=== PATIENT | female | born 1930 | race Caucasian/White ===

== ENCOUNTER 2016-10-16 08:50 | Emergency (ER) | payer MEDICARE, BC ==
[2016-10-16] MEDS ORDERED: Alum Hydrox/Mag Hydrox/Simeth 30 ML, Lidocaine 2% 15 ML PO STA ×2 (09:11)
--- NOTE | 2016-10-16 10:27 | EDM.PDOC ---
ED HPI GENERAL MEDICAL PROBLEM - General Chief Complaint: Chest Pain Stated Complaint: CHEST PAIN Time Seen by Provider: 10/16/16 09:00 Source of Information: Reports: Patient, RN notes reviewed History Limitations: Reports: No limitations - History of Present Illness INITIAL COMMENTS - FREE TEXT/NARRATIVE: The patient states that she was woken with anterior chest pain around 05:00 this morning. It is burning in character. It does not radiate. The patient states that it feels somewhat better if she is in an upright position, worse if she is supine. No associated symptoms, such as nausea, diaphoresis, dyspnea, or sense of impending doom. No prior similar symptoms. The patient states that she did not try any home remedies to treat this. Bilateral Chest Pain Score (Numeric/FACES): 5 - Related Data Allergies Allergy/AdvReac Type Severity Reaction Status Date / Time Unable to Assess Allergy Verified 10/16/16 08:57 Past Medical History HEENT History: Reports: Cataract Cardiovascular History: Reports: High cholesterol, Hypertension Gastrointestinal History: Reports: GERD Genitourinary History: Reports: Urinary incontinence Endocrine/Metabolic History: Reports: Hypothyroidism - Past Surgical History HEENT Surgical History: Reports: Cataract surgery Female Surgical History: Reports: Other (see below) (Bladder suspension) Social & Family History - Family History Family Medical History: Noncontributory - Tobacco Use Smoking Status *Q: Former Smoker Tobacco Use Within Last Twelve Months: No Years of Tobacco use: 39 Packs/Tins Daily: 0.5 Used Tobacco, but Quit: Yes Month Tobacco Last Used: 1991 Second Hand Smoke Exposure: No - Caffeine Use Caffeine Use: Reports: Coffee - Alcohol Use Alcohol Use History: Yes Alcohol Use Frequency: Socially - Recreational Drug Use Recreational Drug Use: No - Living Situation & Occupation Living situation: Reports: , alone 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) ED ROS GENERAL - Review of Systems Review Of Systems: See Below Constitutional: Reports: no symptoms HEENT: Reports: Other (URI symptoms last week) Respiratory: Reports: No Symptoms Cardiovascular: Reports: No symptoms Endocrine: Reports: no symptoms GI/Abdominal: Reports: No symptoms : Reports: no symptoms Musculoskeletal: Reports: no symptoms Skin: Reports: no symptoms Neurological: Reports: No Symptoms Psychiatric: Reports: No symptoms Hematologic/Lymphatic: Reports: no symptoms Immunologic: Reports: no symptoms ED EXAM, GENERAL - Physical Exam Exam: See Below Exam Limited By: No limitations General Appearance: alert, WD/WN, no apparent distress Eye Exam: bilateral eye: EOMI, normal inspection Ears: normal external exam, hearing grossly normal Ear Exam: bilateral ear: auricle normal Nose: normal inspection, no blood Throat/Mouth: Normal inspection, Normal lips, Normal voice, No airway compromise Head: atraumatic, normocephalic Neck: normal inspection, full range of motion Respiratory/Chest: no respiratory distress, lungs clear, normal breath sounds, no accessory muscle use, chest non-tender Cardiovascular: normal peripheral pulses, regular rate, rhythm, no edema, no gallop, no JVD, no murmur, no rub Peripheral Pulses: 4+: radial (L), radial (R) GI/Abdominal: normal bowel sounds, soft, no organomegaly, no distention, no abnormal bruit, no mass, tender (Epigastric region only. Nontender elsewhere, including the right upper quadrant.) Back Exam: normal inspection, full range of motion. No: CVA tenderness (L), CVA tenderness (R) Extremities: normal inspection, normal range of motion, no pedal edema, normal capillary refill Neurological: alert, oriented, normal cognition, no motor/sensory deficits Psychiatric: normal affect Skin Exam: Warm, Dry, Intact, Normal color, No rash Lymphatic: no adenopathy EKG INTERPRETATION EKG Date: 10/16/16 Time: 09:00 Rhythm: NSR Rate (beats/min): 73 Crane: normal P-wave: present QRS: normal ST-T: normal QT: normal Comparison: no change (01/10/2014) Course - Vital Signs Last Recorded V/S: Last Vital Signs Temp 36.2 C 10/16/16 08:57 Pulse 76 10/16/16 10:56 Resp 12 10/16/16 10:56 BP 120/76 10/16/16 10:56 Pulse Ox 100 10/16/16 10:56 - Orders/Labs/Meds Labs: Laboratory Tests 10/16/16 10/16/16 10/16/16 Range/Units 09:15 09:15 09:15 WBC 9.53 (3.98-10.04) K/mm3 RBC 4.62 (3.98-5.22) M/mm3 Hgb 13.7 (11.2-15.7) gm/L Hct 39.9 (34.1-44.9) % MCV 86.4 (79.4-94.8) fl MCH 29.7 (25.6-32.2) pg MCHC 34.3 (32.2-35.5) g/dl RDW Std Deviation 41.5 (36.4-46.3) fL Plt Count 181 L (182-369) K/mm3 MPV 13.1 H (9.4-12.3) fl Neutrophils % (Manual) 77 H (40-60) % Band Neutrophils % 0 (0-10) % Lymphocytes % (Manual) 19 L (20-40) % Atypical Lymphs % 0 % Monocytes % (Manual) 1 L (2-10) % Eosinophils % (Manual) 3 (0.7-5.8) % Basophils % (Manual) 0 L (0.1-1.2) Platelet Estimate Adequate RBC Morph Comment Normal PT 9.8 (8.0-13.0) SECONDS INR 0.90 APTT 22 (22-36) SECONDS Sodium 138 (136-145) mEq/L Potassium 3.5 (3.5-5.1) mEq/L Chloride 101 (98-107) mEq/L Carbon Dioxide 25 (21-32) mEq/L Anion Gap 15.5 H (5-15) BUN 26 H (7-18) mg/dL Creatinine 1.5 H (0.55-1.02) mg/dL Est Cr Clr Drug Dosing 27.63 mL/min Estimated GFR (MDRD) 33 (>60) mL/min BUN/Creatinine Ratio 17.3 (14-18) Glucose 134 H (83-115) mg/dL Calcium 9.7 (8.5-10.1) mg/dL Total Bilirubin 0.4 (0.2-1.0) mg/dL AST 16 (15-37) U/L ALT 24 (14-59) U/L Alkaline Phosphatase 69 (46-116) U/L Troponin I < 0.017 (0.00-0.056) ng/mL Total Protein 7.8 (6.4-8.2) g/dl Albumin 4.3 (3.4-5.0) g/dl Globulin 3.5 gm/dL Albumin/Globulin Ratio 1.2 (1-2) Lipase 293 (73-393) U/L Meds: Medications Discontinued Medications Generic Name Dose Route Start Last Admin Trade Name Saqib PRN Reason Stop Dose Admin Al Hydroxide/Mg Hydroxide 30 0 ml 10/16/16 09:11 10/16/16 09:19 ml/ Lidocaine HCl 15 ml PO 10/16/16 09:12 45 ml ONETIME STA Administration Famotidine 40 mg 10/16/16 10:40 10/16/16 10:51 Pepcid PO 10/16/16 10:41 40 mg ONETIME STA Administration - Radiology Interpretation Free Text/Narrative:: Two-view chest radiograph does not appear to demonstrate any acute abnormalities. Cardiac silhouette is within normal limits. No pulmonary vascular congestion. No pleural effusions. No focal infiltrate. No pneumothorax. There is bilateral hyperinflation and bilateral diaphragmatic flattening, consistent with COPD. Formal read per the Radiologist pending. - Re-Assessments/Exams Free Text/Narrative Re-Assessment/Exam: 10/16/16 10:39 Test results discussed with the patient. The patient reports significant improvement in her epigastric pain following the GI cocktail. The rest of her workup, including an ECG obtained with pain, is unremarkable. Her pain is almost certainly due to GERD. I'm going to start the patient on oral Pepcid today, and recommended she take one tablet every morning, going forward. If that is ineffective, the patient should have an EGD. Departure - Departure Time of Disposition: 10:43 Disposition: Home, Self-Care 01 Condition: good Clinical Impression: GERD (gastroesophageal reflux disease) Instructions: Gastroesophageal Reflux Disease, Adult Referrals: Rodger Molina MD [Primary Care Provider] - Forms: ED Department Discharge Additional Instructions: You were seen in the emergency room today for chest pain and tenderness in your upper central abdomen. Workup in the ER included blood work, an ECG, and a chest x-ray. You were also given a GI cocktail to drink. Your workup was entirely normal. There is no evidence that your chest pain is from your heart. Additionally, you received significant improvement after drinking the GI cocktail. Your pain is ALMOST CERTAINLY due to acid reflux. You have been started on the antacid medicine Pepcid (famotidine). This is available [id number], and generics are just as good as the brand name. We recommend you take one tablet each morning, starting tomorrow, 10/17/2016. If that does not help with your symptoms, please followup with Dr. Molina to arrange for an EGD (scope of your stomach). We recommend that you notify the office of Dr. Molina on Tuesday morning of today' s visit. If any other problems, please do not hesitate to return to the ER.
[2016-10-16] MEDS ORDERED: Famotidine 20 MG Tab PO STA (10:40)
[2016-10-16 10:58] VITALS: BP 120/76
--- NOTE | 2016-10-17 09:26 | CR ---
Chest: Two views of the chest were obtained. Comparison: Previous chest x-ray of 06/28/09. Heart size is normal. Tortuous thoracic aorta is seen. Lungs are clear but somewhat hyperinflated. Bony structures are osteopenic. Degenerative spurring noted within the spine. Impression: 1. Emphysematous change. Nothing acute is identified on two-view chest x-ray. Diagnostic code #2
== END 2016-10-16 11:05 | disposition home or self-care (01) ==
LOC: JD.ED 08:50
DX: K21.9 Gastro-esophageal reflux disease without esophagitis (principal); E78.00 Pure hypercholesterolemia, unspecified; I10 Essential (primary) hypertension; E03.9 Hypothyroidism, unspecified; Z87.891 Personal history of nicotine dependence
CPT/HCPCS: 36415; 71020; 80053; 83690; 84484; 85025; 85610; 85730; 93005; 99285; A9270; 99283

== ENCOUNTER 2017-04-23 16:32 | Emergency (ER) | payer MEDICARE, OTHER ==
[2017-04-23 17:06] VITALS: BP 140/62
--- NOTE | 2017-04-23 17:20 | EDM.PDOC ---
ED HPI GENERAL MEDICAL PROBLEM - General Chief Complaint: Abdominal Pain Stated Complaint: DIZZY STOMACH PAIN Time Seen by Provider: 04/23/17 17:20 Source of Information: Reports: Patient History Limitations: Reports: No Limitations - History of Present Illness INITIAL COMMENTS - FREE TEXT/NARRATIVE: 86-year-old female presents to the ED with complaints of gradually worsening abdominal pain over the last 2-3 days. She complains of pressure sensation under both left and right costal margins across her upper abdomen in pain in the left lower quadrant of the abdomen. Associated chills but no definitive fever. Appetite remains good. She also complains of diffuse low back pain. Does not hurt to cough and laugh or sneeze. She reports that she had a bout of diarrhea and was identified to have a urinary tract infection and was treated with antibiotics of which she finished last Tuesday or 6 days ago. Interestingly her diarrhea cleared up as did the symptoms of the urinary tract infection with the antibiotics. She used them for 7 days and she's not sure what it was. She has never had diverticulitis before. There are no signs or symptoms of renal colic. Onset: Gradual Onset Date: 04/21/17 Duration: Day(s): (gradually getting worse over the last 2 and half days), Getting Worse Location: Reports: Abdomen (upper abdomen as well as left lower quadrant of the abdomen.), Back (diffuse low back pain) Quality: Reports: Ache, Other (occasionally colicky cramping type pain) Severity: Moderate Improves with: Reports: None Worsens with: Reports: None Context: Denies: Activity, Exercise, Lifting, Sick Contact, Trauma, Other Associated Symptoms: Reports: Fever/Chills, Malaise. 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 No recent changes to any of her medications.) Lower Abdomen Pain Score (Numeric/FACES): 6 - Related Data Allergies Allergy/AdvReac Type Severity Reaction Status Date / Time No Known Allergies Allergy Verified 04/23/17 17:02 Home Meds: Home Meds Meloxicam 7.5 mg PO DAILY #30 tablet 10/07/17 [Rx] Potassium Chloride 20 meq PO DAILY #30 tablet.er 04/23/17 [Rx] Past Medical History HEENT History: Reports: Cataract Cardiovascular History: Reports: High Cholesterol, Hypertension Gastrointestinal History: Reports: GERD Genitourinary History: Reports: Urinary Incontinence Endocrine/Metabolic History: Reports: Hypothyroidism - Past Surgical History HEENT Surgical History: Reports: Cataract Surgery Female Surgical History: Reports: Other (See Below) Social & Family History - Family History Family Medical History: Noncontributory - Tobacco Use Smoking Status *Q: Former Smoker Years of Tobacco use: 39 Packs/Tins Daily: 0.5 Used Tobacco, but Quit: No Month Tobacco Last Used: 1991 Second Hand Smoke Exposure: No - Caffeine Use Caffeine Use: Reports: Coffee - Alcohol Use Days Per Week of Alcohol Use: 0 - Recreational Drug Use Recreational Drug Use: No - Living Situation & Occupation Living situation: Reports: , Alone Occupation: Employed ED ROS GENERAL - Review of Systems Review Of Systems: See Below Constitutional: Reports: Chills, Malaise. Denies: Fever, Decreased Appetite, Weight Loss HEENT: Reports: Vertigo. Denies: No Symptoms Respiratory: Reports: No Symptoms Cardiovascular: Reports: No Symptoms Endocrine: Reports: No Symptoms GI/Abdominal: Reports: Abdominal Pain. Denies: Constipation, Diarrhea (see history of present illness), Distension, Flatus, Hematemesis, Melena, Stool Incontinence : Reports: Frequency, Incontinence (occasional urge incontinence. Has had previous A&P repair.) Musculoskeletal: Reports: Back Pain (diffuse low back pain.) Skin: Reports: No Symptoms Neurological: Reports: No Symptoms Psychiatric: Reports: No Symptoms Hematologic/Lymphatic: Reports: No Symptoms Immunologic: Reports: No Symptoms ED EXAM, GI/ABD - Physical Exam Exam: See Below Exam Limited By: No Limitations General Appearance: Alert, WD/WN, No Apparent Distress Eyes: Bilateral: Normal Appearance Throat/Mouth: Normal Inspection, Normal Lips, Normal Oropharynx, Other Head: Atraumatic, Normocephalic (tongue is mildly dry and coated) Neck: Normal Inspection, Supple, Non-Tender, Full Range of Motion. No: Lymphadenopathy (L), Lymphadenopathy (R) Respiratory/Chest: No Respiratory Distress, Lungs Clear, Normal Breath Sounds, No Accessory Muscle Use, Chest Non-Tender Cardiovascular: Normal Peripheral Pulses, Regular Rate, Rhythm, No Edema, No Gallop, No JVD, No Murmur GI/Abdominal Exam: Soft, Non-Tender, Distended (slightly distended and tympanitic to percussion throughout all 4 quadrants.), Tender (tenderness localized to left lower quadrant sigmoid colon area on deep palpation), Abnormal Bowel Sounds (diffuse hyperactive bowel sounds.). No: Guarding ( no guarding or rebound.), Rigid, Rebound Back Exam: Vertebral Tenderness Extremities: Normal Inspection (she is tender throughout her lower back L3 L4 L5 facet joints bilaterally with no overlying paraspinal muscle spasm.), Normal Range of Motion, Non-Tender, No Pedal Edema Neurological: Alert, Oriented, CN II-XII Intact, Normal Cognition Psychiatric: Normal Affect, Normal Mood Skin Exam: Warm, Dry, Intact, Normal Color, No Rash Course - Vital Signs Last Recorded V/S: Last Vital Signs Temp 36.2 C 04/23/17 17:02 Pulse 71 04/23/17 17:02 Resp 18 04/23/17 17:02 BP 140/62 04/23/17 17:02 Pulse Ox 94 L 04/23/17 17:02 - Orders/Labs/Meds Orders: Active Orders 24 hr Category Date Time Status Peripheral IV Care [RC] . DIRECTED Care 04/23/17 17:29 Active Abdomen 1V Flat [CR] Stat Exams 04/23/17 17:28 Taken Abdomen Pelvis wo Cont [CT] Stat Exams 04/23/17 18:29 Taken CULTURE BLOOD [BC] Stat Lab 04/23/17 17:50 Received CULTURE BLOOD [BC] Stat Lab 04/23/17 18:04 Received URINALYSIS W/MICROSCOPIC [UA W/MICROSCOPIC] [URIN] Stat Lab 04/23/17 17:28 Uncollected Sodium Chloride 0.9% [Saline Flush] Med 04/23/17 17:29 Active 10 ml FLUSH ASDIRECTED PRN Blood Culture x2 Reflex Set [OM.PC] Stat Oth 04/23/17 17:29 Ordered Peripheral IV Insertion Adult [OM.PC] Stat Oth 04/23/17 17:29 Ordered Medication Orders Sodium Chloride (Saline Flush) 10 ml FLUSH ASDIRECTED PRN PRN Reason: Keep Vein Open Last Admin: 04/23/17 19:04 Dose: 10 ml Labs: Laboratory Tests 10/07/17 10/07/17 10/07/17 Range/Units 18:04 18:04 18:04 WBC 8.91 (3.98-10.04) K/mm3 RBC 4.37 (3.98-5.22) M/mm3 Hgb 13.0 (11.2-15.7) gm/L Hct 37.7 (34.1-44.9) % MCV 86.3 (79.4-94.8) fl MCH 29.7 (25.6-32.2) pg MCHC 34.5 (32.2-35.5) g/dl RDW Std Deviation 44.3 (36.4-46.3) fL Plt Count 190 (182-369) K/mm3 MPV 13.0 H (9.4-12.3) fl Neutrophils % (Manual) 69 H (40-60) % Band Neutrophils % 1 (0-10) % Lymphocytes % (Manual) 21 (20-40) % Atypical Lymphs % 0 % Monocytes % (Manual) 7 (2-10) % Eosinophils % (Manual) 1 (0.7-5.8) % Basophils % (Manual) 1 (0.1-1.2) Platelet Estimate Adequate RBC Morph Comment Normal Sodium 141 (136-145) mEq/L Potassium 3.3 L (3.5-5.1) mEq/L Chloride 104 (98-107) mEq/L Carbon Dioxide 23 (21-32) mEq/L Anion Gap 17.3 H (5-15) BUN 20 H (7-18) mg/dL Creatinine 1.5 H (0.55-1.02) mg/dL Est Cr Clr Drug Dosing 26.14 mL/min Estimated GFR (MDRD) 33 (>60) mL/min BUN/Creatinine Ratio 13.3 L (14-18) Glucose 119 H (83-115) mg/dL Calcium 9.4 (8.5-10.1) mg/dL Total Bilirubin 0.4 (0.2-1.0) mg/dL AST 20 (15-37) U/L ALT 25 (14-59) U/L Alkaline Phosphatase 45 L (46-116) U/L C-Reactive Protein < 0.2 (<1.0) mg/dL Total Protein 7.0 (6.4-8.2) g/dl Albumin 3.6 (3.4-5.0) g/dl Globulin 3.4 gm/dL Albumin/Globulin Ratio 1.1 (1-2) Lipase 228 (73-393) U/L Meds: Medications Generic Name Dose Route Start Last Admin Trade Name Saqib PRN Reason Stop Dose Admin Sodium Chloride 10 ml 04/23/17 17:29 04/23/17 19:04 Saline Flush FLUSH 10 ml ASDIRECTED PRN Administration Keep Vein Open Discontinued Medications Generic Name Dose Route Start Last Admin Trade Name Freq PRN Reason Stop Dose Admin Diatrizoate Meglum/Diatrizoate Sod 90 ml 04/23/17 19:16 04/23/17 19:46 Gastrografin 37% PO 04/23/17 19:17 90 ml ONETIME ONE Administration Dicyclomine HCl 20 mg 04/23/17 21:00 04/23/17 21:05 Bentyl PO 04/23/17 21:01 20 mg ONETIME ONE Administration Potassium Chloride 20 meq 04/23/17 20:57 04/23/17 21:05 Klor-Con M20 PO 04/23/17 20:58 20 meq ONETIME ONE Administration - Radiology Interpretation Free Text/Narrative:: 86-year-old female presents to the ED with complaint of gradually worsening abdominal pain over the last 2-3 days. Associated chills but no definitive fever. She is afebrile at the time of presentation she states that she had diarrhea 10 days ago and was diagnosed with a urinary tract infection. She was treated with a course of 7 days of antibiotics which cleared up her diarrhea and her urinary tract infection. Last pill was taken last April 17. She was on a seven-day course of medication. She states subsequently her bowel function is returning to formed up stools without blood.examination reveals localized tenderness to the left lower quadrant suspicious for possible diverticulitis developing. She has very hyperactive bowel sounds throughout which may mean there is some constipation issues going on as well. Plan routine labs peripheral IV lock to be established she does not need any medication at this time. 1 - Re-Assessments/Exams Free Text/Narrative Re-Assessment/Exam: 04/23/17 18:32 KUB reveals air throughout the small and portions of the large bowel without any air-fluid levels to suggest an obstruction. I can see a letter fluid along the pelvic brim in the midline suggesting fluid within the lower pelvis. Therefore CT of the abdomen and pelvis will be performed to help clarify cause of her abdominal pain. 04/23/17 19:00labs reveal a normal white count at 8.91 with 69% neutrophils and 1% band cells. Hemoglobin is 13.0 hematocrit is 37.7. Platelets 190,000. Chemistry shows a sodium 07/18/40 potassium slightly low at 3.3 chloride 104 bicarbonate 23. And a gap is mildly elevated at 17.3. B1 is 20 creatinine is elevated 1.5 within EGFR 33 indicating stage III chronic kidney disease. Glucose is 119 lipase is normal at 222. CRP is less than 0.2. Urinalysis is not yet available.due to her low EGFR decision made not to pursue IV contrast with her CT abdomen and pelvis. It will be done with only oral contrast. 04/23/17 20:12CT of the abdomen and pelvis has been done with oral contrast only. It reveals a homogeneous looking liver and normal gallbladder. Pancreas appears normal spleen is normal both kidneys show peripelvic renal cysts without any degree of obstruction of the ureters. Adrenal glands appear unremarkable. There is diffuse diverticulosis of the 8 entire colon. But there is no evidence of acute diverticulitis. No bowel obstruction. No finding to suggest appendicitis. No significant fluid collections within the pelvis. 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 Aortic iliac vessels show diffuse atherosclerotic disease with no aortic aneurysm. No lymphadenopathy appreciated within the pelvis. Therefore her bowel problem. Sputum mostly that of scattered constipation. I'm going to place her on MiraLAX 17 g once daily to keep her bowels much more regular. She is mildly volume depleted at this time. She needs to drink more fluids. She has mild hypoproteinemia and her diet should include lots of juices.in regards to her back she may benefit from a low-dose anti-inflammatory such as meloxicam but I don't have her med list to be able to absorb reduce medications. We will try and obtain these through the [employer] system as she does see Dr. Molina as her primary care physician 04/23/17 20:38 through the [employer] system we were able to obtain her current med list. She is currently on omeprazole 20 mg once a day in the morning enteric -coated aspirin 81 mg daily levothyroxine 50 g once daily hydrochlorothiazide 12.5 mg once daily amlodipine 5 mg once daily Zocor 20 mg tablet once daily metoprolol 50 mg one half tablet twice daily multivitamin and appears the most recent antibiotic that she utilized was Cipro for urinary tract infection. 04/23/17 20:58I'm going to place her on meloxicam 15 mg once a day. I will also place her on Slow-K 20 mg once daily to improve her potassium function and perhaps her appetite. Her dizziness I believe is due to volume depletion and she is advised to drink plenty of fluids to include juices Gatorade Powerade etc. She has had 2 diarrhea stools in the department after having oral contrast for the CT of the abdomen and pelvis. This will provide cleanse of the bowel and I will not add MiraLAX powder once daily at this time but if she develops further prongs with her abdomen she may well need this daily. Departure - Departure Time of Disposition: 20:59 Disposition: Home, Self-Care 01 Condition: Fair Clinical Impression: Nausea, Hypokalemia, Volume depletion, Constipation by delayed colonic transit - Discharge Information Prescriptions: Meloxicam 7.5 mg PO DAILY #30 tablet Potassium Chloride 20 meq PO DAILY #30 tablet.er Referrals: Rodger Molina MD [Primary Care Provider] - Forms: ED Department Discharge Additional Instructions: evaluation the emergency room today in regards to development of diffuse abdominal pain particularly across the upper abdomen underneath the ribs and in the left lower quadrant. Associated lightheadedness dizziness and nausea. Lab work reveals a normal white count with no signs of an action. Potassium was found to be low from poor oral intake and loss of potassium due to use of water pill hydrochlorothiazide. Potassium supplement is therefore advised once daily and Casimiro Chan wrote a prescription for potassium supplement 20 mEq once daily for the next month. This may relieve the nausea and improve appetite. Lab work identified that you're low on fluids and you need to drink more juices and fluids to rehydrate. CT scan of the abdomen is completed to rule out diverticulitis and infection of the large bowel. You have numerous diverticula but there is no active infection or diverticulitis evident in the bowel. There was a lot of increased stool scattered throughout the upper: Across the upper abdomen and right hemicolon. The oral contrast you drink 4 CT exam will provide bowel cleanse. If problems with constipation develop after this may need to mixing picker tender some MiraLAX powder and take a half a scoop once daily. Suggest follow with in 7-10 days time for repeat lab tests.recheck on kidney function and potassium levels. - My Orders Last 24 Hours: My Active Orders 04/23/17 17:28 Abdomen 1V Flat [CR] Stat URINALYSIS W/MICROSCOPIC [UA W/MICROSCOPIC] [URIN] Stat 04/23/17 17:29 Peripheral IV Care [RC] . DIRECTED Sodium Chloride 0.9% [Saline Flush] 10 ml FLUSH ASDIRECTED PRN Blood Culture x2 Reflex Set [OM.PC] Stat Peripheral IV Insertion Adult [OM.PC] Stat 04/23/17 17:50 CULTURE BLOOD [BC] Stat 04/23/17 18:04 CULTURE BLOOD [BC] Stat 04/23/17 18:29 Abdomen Pelvis wo Cont [CT] Stat - Assessment/Plan Last 24 Hours: My Active Orders 04/23/17 17:28 Abdomen 1V Flat [CR] Stat URINALYSIS W/MICROSCOPIC [UA W/MICROSCOPIC] [URIN] Stat 04/23/17 17:29 Peripheral IV Care [RC] . DIRECTED Sodium Chloride 0.9% [Saline Flush] 10 ml FLUSH ASDIRECTED PRN Blood Culture x2 Reflex Set [OM.PC] Stat Peripheral IV Insertion Adult [OM.PC] Stat 04/23/17 17:50 CULTURE BLOOD [BC] Stat 04/23/17 18:04 CULTURE BLOOD [BC] Stat 04/23/17 18:29 Abdomen Pelvis wo Cont [CT] Stat
[2017-04-23] MEDS ORDERED: Sodium Chloride 0.9% 10 ML Syringe FLUSH PRN (17:29)
[2017-04-23] MEDS ORDERED: Diatrizoate Meglumine/Diatrizoate Sodium 37% 120 ML Bottle PO ONE (19:16)
[2017-04-23] MEDS ORDERED: Potassium Chloride 20 MEQ Tab.ER PO ONE (20:57)
[2017-04-23] MEDS ORDERED: Dicyclomine 10 MG Cap PO ONE (21:00)
--- NOTE | 2017-04-25 10:25 | CR ---
Abdomen: Supine view of the abdomen was obtained. Comparison: No prior abdominal x-ray, previous noncontrast CT exam of 07/05/11. Bowel gas pattern appears within normal limits. Bony structures are osteopenic. Joint space narrowing is seen within the right hip. No abnormal calcifications or soft tissue abnormality is appreciated. Impression: 1. Nonspecific supine abdominal x-ray. Diagnostic code #1
--- NOTE | 2017-04-25 10:25 | CT ---
CT abdomen and pelvis Technique: Multiple axial sections were obtained from above the dome of the diaphragm inferiorly through the pubic symphysis. Oral contrast has been given. No intravenous contrast was utilized. Comparison: Prior noncontrast CT exam of 07/05/11 is available. Findings: Small portion of the visualized lung bases shows nothing acute. Small hiatal hernia is seen with gastroesophageal reflux of contrast being noted. Liver shows no focal abnormality. Spleen appears within normal limits. Adrenal glands show no nodule. Pancreas appears within normal limits. Kidneys show areas of scarring. Incidental parapelvic cysts are seen within both kidneys. No hydronephrosis is seen of either kidney. Aorta shows atherosclerotic change without aneurysmal dilatation. No retroperitoneal adenopathy or mesenteric abnormalities are seen. Appendix believed to be identified which appears within normal limits. Mild diverticulosis is seen within the sigmoid colon without diverticulitis. No bowel dilatation is seen. Small fat-containing umbilical hernia is identified. Mild pelvic floor prolapse is seen. Bone window settings were reviewed which show degenerative change scattered within the spine most severe at L4-L5 with vacuum phenomena. Impression: 1. Incidental findings as described above. Nothing acute is definitely appreciated. Diagnostic code #3 Agree with preliminary report issued by [employer] ([facility] preliminary report dictated on 04/23/17, 19:03 PM Central Time)
== END 2017-04-23 21:30 | disposition home or self-care (01) ==
LOC: JD.ED 16:32
DX: E86.9 Volume depletion, unspecified (principal); E87.6 Hypokalemia; K59.01 Slow transit constipation; E78.00 Pure hypercholesterolemia, unspecified; I10 Essential (primary) hypertension; K21.9 Gastro-esophageal reflux disease without esophagitis; E03.9 Hypothyroidism, unspecified; Z87.891 Personal history of nicotine dependence; Z79.899 Other long term (current) drug therapy
CPT/HCPCS: 36415; 74000; 74176; 80053; 83690; 85025; 86140; 87040; 99285; A9270; J7050; Q9963

== ENCOUNTER 2017-05-18 13:23 | Emergency (ER) | payer MEDICARE, OTHER ==
--- NOTE | 2017-05-18 13:35 | EDM.PDOC ---
ED HPI GENERAL MEDICAL PROBLEM - General Chief Complaint: Neck Problem Stated Complaint: DIZZINESS Time Seen by Provider: 05/18/17 13:40 Source of Information: Reports: Patient History Limitations: Reports: No Limitations - History of Present Illness INITIAL COMMENTS - FREE TEXT/NARRATIVE: 86-year-old female presents to the ED with chief complaint of dizziness. This is happening paroxysmal he throughout the day and is happened many times in the past. It is just worse today. Shortly after getting up today she felt offkilter for a period of time with a sense of off balance. She did not feel she was going to faint. She states she had to grab onto the furniture because she was unstable in her walking ability. Of note she did not fall. She went back to bed for a while this morning and then when she woke up things seem to be better. However symptoms recurred after dinner at 11:30 this morning. Gain she felt offkilter like she was walking sideways. She has no associated nausea vomiting. She recognizes that symptoms seem to go away when she rests. She is anxious that she may be having a stroke or that her heart might be part of the problem as she was discussed with her in the past that her heart might be going too fast or too slow at times to make her dizzy. She was found to be normotensive and no orthostatic hypotension symptoms on assessment today. She is mildly hard of hearing but does not wear hearing aids. Denies any increased roaring buzzing or tinnitus in her ears. Her chief complaint is pain throughout her cervical spine particularly on the left back of her neck up to the base of her skull. 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 Onset: Unknown/Unsure (Symptoms seem to be intermittent but worse today.) Duration: Week(s): Location: Reports: Other (Dizziness which I interpret his vertigo.) Quality: Reports: Same as Previous Episode Severity: Moderate Improves with: Reports: Rest Worsens with: Reports: Movement Context: Denies: Activity, Exercise, Lifting, Sick Contact, Trauma, Other Associated Symptoms: Reports: cough w sputum. 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: Reports: Other (see below) (None.) Head Pain Score (Numeric/FACES): 7 - Related Data Allergies Allergy/AdvReac Type Severity Reaction Status Date / Time No Known Allergies Allergy Verified 05/18/17 13:38 Home Meds: Home Meds Aspirin [Halfprin] 81 mg PO DAILY 04/23/17 [History] Hydrochlorothiazide 12.5 mg PO DAILY 04/23/17 [History] Levothyroxine [Synthroid] 50 mcg PO DAILY 04/23/17 [History] Meloxicam 7.5 mg PO DAILY #30 tablet 04/23/17 [Rx] Metoprolol Tartrate 25 mg PO BID 04/23/17 [History] Multivitamins,Ther w-Minerals [Multivitamins with Minerals HP] 1 tab PO DAILY [History] Potassium Chloride 20 meq PO DAILY #30 tablet.er 04/23/17 [Rx] Simvastatin [Zocor] 20 mg PO DAILY 04/23/17 [History] amLODIPine [Norvasc] 5 mg PO DAILY 04/23/17 [History] Fluticasone Propionate [Aller-Meek] 50 mcg NASBOTH BID 05/18/17 [History] Magnesium Chloride [Slow-Mag] 71.5 mg PO DAILY #30 tablet. 05/18/17 [Rx] Meclizine [Antivert] 12.5 mg PO TID PRN #15 tablet 05/18/17 [Rx] Past Medical History HEENT History: Reports: Cataract Cardiovascular History: Reports: High Cholesterol, Hypertension Gastrointestinal History: Reports: GERD Genitourinary History: Reports: Urinary Incontinence Endocrine/Metabolic History: Reports: Hypothyroidism - Past Surgical History HEENT Surgical History: Reports: Cataract Surgery Female Surgical History: Reports: Other (See Below) Social & Family History - Family History Family Medical History: Noncontributory - Tobacco Use Smoking Status *Q: Former Smoker Years of Tobacco use: 39 Packs/Tins Daily: 0.5 Used Tobacco, but Quit: No Month Tobacco Last Used: 1991 Second Hand Smoke Exposure: No - Caffeine Use Caffeine Use: Reports: Coffee - Alcohol Use Days Per Week of Alcohol Use: 0 - Recreational Drug Use Recreational Drug Use: No - Living Situation & Occupation Living situation: Reports: , Alone Occupation: Employed ED ROS GENERAL - Review of Systems Review Of Systems: See Below Constitutional: Denies: Fever, Chills, Malaise, Weakness, Night Sweats, Diaphoresis, Decreased Appetite, Weight Loss HEENT: Reports: Glasses (Mild chronic hearing loss bilaterally), Hearing Loss, Vertigo Respiratory: Reports: No Symptoms Cardiovascular: Reports: Blood Pressure Problem, Palpitations (Sometimes aware of heart working hard in her chest.). Denies: Chest Pain, Claudication ( Chronically hypertensive but usually well-controlled with current medications), Dyspnea on Exertion, Edema, Lightheadedness, Orthopnea, Syncope, Other Endocrine: Reports: Fatigue GI/Abdominal: Reports: Constipation. Denies: Nausea : Reports: Frequency, Incontinence Musculoskeletal: Reports: Neck Pain, Back Pain (Both stress and urge components. ), Joint Pain (Knees and hips at times) Skin: Reports: No Symptoms. Denies: Cyanosis, Jaundice, Mottled, Pallor, Diaphoresis, Dryness, Bruising, Pruritis, Erythema, Wound, Burn(s) Neurological: Reports: Dizziness, Difficulty Walking. Denies: Confusion, Headache, Numbness, Paresthesia, Pre-Existing Deficit, Syncope, Tingling, Tremors, Trouble Speaking, Weakness, Change in Speech Psychiatric: Reports: Anxiety Hematologic/Lymphatic: Reports: No Symptoms Immunologic: Reports: No Symptoms ED EXAM, DIZZINESS - Physical Exam Exam: See Below Exam Limited By: Intoxication General Appearance: Alert, WD/WN, Anxious, Mild Distress Eye Exam: Bilateral Eye: Normal Inspection, Nystagmus (No iced no nystagmus identified) Ears: Normal External Exam, Normal TMs Throat/Mouth: Normal Inspection, Normal Lips, Normal Oropharynx Head Exam: Atraumatic, Normocephalic Neck: Normal Inspection, Full Range of Motion, Tender Lateral (Marked tenderness to palpation laterally particular in the left side as compared to the right. This is adjacent to her cervical vertebra.). No: Lymphadenopathy (L) , Lymphadenopathy (R) Respiratory/Chest: No Respiratory Distress, Lungs Clear, Normal Breath Sounds, No Accessory Muscle Use Cardiovascular: Normal Peripheral Pulses, Regular Rate, Rhythm, No Edema, No Gallop, No Murmur GI/Abdominal: Normal Bowel Sounds, Soft, Non-Tender, No Organomegaly Neurological: Alert, Normal Mood/Affect, Normal Dorsiflexion, CN II-XII Intact, Normal Plantar Flexion, Normal Gait, Normal Reflexes, No Motor/Sensory Deficits , Oriented x 3 Back Exam: Normal Inspection, Full Range of Motion. No: CVA Tenderness (L), CVA Tenderness (R) Extremities: Normal Inspection, Normal Range of Motion, Non-Tender, No Pedal Edema, Normal Capillary Refill Psychiatric: Normal Affect, Normal Mood Skin Exam: Warm, Dry, Intact, Normal Color, No Rash Course - Vital Signs Last Recorded V/S: Last Vital Signs Temp 36.1 C 05/18/17 13:34 Pulse 64 05/18/17 16:30 Resp 16 05/18/17 16:30 BP 154/86 H 05/18/17 16:30 Pulse Ox 94 L 05/18/17 16:30 Orthostatic Blood Pressure [ 140/88 Standing] Orthostatic Blood Pressure [ 143/79 Sitting] Orthostatic Blood Pressure [ 138/63 Supine] - Orders/Labs/Meds Labs: Laboratory Tests 05/18/17 05/18/17 Range/Units 14:21 14:21 WBC 6.81 (3.98-10.04) K/mm3 RBC 4.18 (3.98-5.22) M/mm3 Hgb 12.4 (11.2-15.7) gm/L Hct 36.9 (34.1-44.9) % MCV 88.3 (79.4-94.8) fl MCH 29.7 (25.6-32.2) pg MCHC 33.6 (32.2-35.5) g/dl RDW Std Deviation 45.1 (36.4-46.3) fL Plt Count 188 (182-369) K/mm3 MPV 12.6 H (9.4-12.3) fl Neutrophils % (Manual) 74 H (40-60) % Band Neutrophils % 0 (0-10) % Lymphocytes % (Manual) 21 (20-40) % Atypical Lymphs % 0 % Monocytes % (Manual) 2 (2-10) % Eosinophils % (Manual) 2 (0.7-5.8) % Basophils % (Manual) 1 (0.1-1.2) Platelet Estimate Adequate Plt Morphology Comment Normal RBC Morph Comment Normal Sodium 140 (136-145) mEq/L Potassium 3.4 L (3.5-5.1) mEq/L Chloride 103 (98-107) mEq/L Carbon Dioxide 25 (21-32) mEq/L Anion Gap 15.4 H (5-15) BUN 21 H (7-18) mg/dL Creatinine 1.3 H (0.55-1.02) mg/dL Est Cr Clr Drug Dosing 31.33 mL/min Estimated GFR (MDRD) 39 (>60) mL/min BUN/Creatinine Ratio 16.2 (14-18) Glucose 210 H (83-115) mg/dL Calcium 9.3 (8.5-10.1) mg/dL Magnesium 1.7 L (1.8-2.4) mg/dl Total Bilirubin 0.5 (0.2-1.0) mg/dL AST 15 (15-37) U/L ALT 20 (14-59) U/L Alkaline Phosphatase 53 (46-116) U/L C-Reactive Protein < 0.2 (<1.0) mg/dL Total Protein 6.5 (6.4-8.2) g/dl Albumin 3.4 (3.4-5.0) g/dl Globulin 3.1 gm/dL Albumin/Globulin Ratio 1.1 (1-2) TSH 3rd Generation 1.705 (0.358-3.74) uIU/mL Meds: Medications Discontinued Medications Generic Name Dose Route Start Last Admin Trade Name Rejiq PRN Reason Stop Dose Admin Metoclopramide HCl 5 mg 05/18/17 13:51 05/18/17 14:28 Reglan PO 05/18/17 13:52 Not Given ONETIME ONE Metoclopramide HCl 5 mg 05/18/17 14:30 05/18/17 14:34 Reglan PO 05/18/17 14:31 5 mg ONETIME ONE Administration - Radiology Interpretation Free Text/Narrative:: 86-year-old female presents the ED with chief complaint of dizziness which is actually vertigo. She feels offkilter off balance and it is difficulty walking when the attacks occur. The settle properly when she stops moving. This is benign. Paroxysmal vertigo which she is experiencing the past just that is worse today. She has no headache. She does have diffuse cervical neck pain from arthritic inflammation. Plan routine labs will be obtained I will give her Reglan 5 mg per ora in hopes of settling the vertigo. 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 No other signs or symptoms are evident to suggest a cardiovascular cause. She has not orthostatic BP is actually slightly elevated and she is anxious at 159/73. Heart are showing sinus rhythm in the 80s. - Re-Assessments/Exams Free Text/Narrative Re-Assessment/Exam: 05/18/17 15:39 labs are back. Normal white count at 6.81 with normal differential 74% neutrophils no bands. Hemoglobin 12.4 hematocrit 36.9. Platelets normal 180,000. Chemistry shows a sodium of 140 potassium slightly low at 3.4. Chloride normal 3 bicarbonate 25. And a gap 15.4. BUNs 21 creatinine is 1.3. Glucose is elevated at 210 magnesium slightly low at 1.7 thyroid function okay at 1.6705 TSH. Patient will be given a Slow-Mag tablet once daily to take to supplement her magnesium. We'll give her Antivert or meclizine 12.5 mg to be taken on a when necessary basis for paroxysmal vertigo symptoms. Departure - Departure Time of Disposition: 15:40 Disposition: Home, Self-Care 01 Condition: Fair Clinical Impression: Hypomagnesemia Benign paroxysmal vertigo Qualifiers: Laterality: unspecified laterality Qualified Code(s): H81.10 - Benign paroxysmal vertigo, unspecified ear - Discharge Information Prescriptions: Magnesium Chloride [Slow-Mag] 71.5 mg PO DAILY #30 tablet.dr Blairzine [Antivert] 12.5 mg PO TID PRN #15 tablet PRN Reason: Vertigo Instructions: Hypomagnesemia Referrals: Rodger Molina MD [Primary Care Provider] - Forms: ED Department Discharge
[2017-05-18] MEDS ORDERED: Metoclopramide 5 MG Tab PO ONE (13:51)
[2017-05-18] MEDS ORDERED: Metoclopramide 10 MG Tab PO ONE (14:30)
[2017-05-18 16:40] VITALS: BP 154/86
== END 2017-05-18 16:30 | disposition home or self-care (01) ==
LOC: JD.ED 13:23
DX: H81.10 Benign paroxysmal vertigo, unspecified ear (principal); E83.42 Hypomagnesemia; I10 Essential (primary) hypertension; E78.00 Pure hypercholesterolemia, unspecified; K21.9 Gastro-esophageal reflux disease without esophagitis; E03.9 Hypothyroidism, unspecified; Z87.891 Personal history of nicotine dependence; Z79.82 Long term (current) use of aspirin; Z79.899 Other long term (current) drug therapy
CPT/HCPCS: 36415; 80053; 83735; 84443; 85025; 86140; 99284; A9270; 99283

== ENCOUNTER 2017-08-23 13:32 | Emergency (ER) | payer OTHER, MEDICARE ==
[2017-08-23 13:43] VITALS: BP 136/77
--- NOTE | 2017-08-23 14:07 | EDM.PDOC ---
ED HPI GENERAL MEDICAL PROBLEM - General Chief Complaint: Back Pain or Injury Stated Complaint: BACK PAIN Time Seen by Provider: 08/23/17 13:48 Source of Information: Reports: Patient History Limitations: Reports: No Limitations - History of Present Illness INITIAL COMMENTS - FREE TEXT/NARRATIVE: Patient is a 86 y/o female who presents to the E.D. complaining of pain to the left lower back s/p fall today. Patient states while at work she was walkiing down a ramp and slipped causing her to fall on the left side of the low back. States the pain was minimal at time of injury. States she went home at 1030 and noticed pain to the above area. Denies any bruising, swelling, CP, SOB, head/ neck pain, or LOC. She has no n/t to her legs, saddle anesthesia, or incontinence to urine or stool. Lower Back Pain Score (Numeric/FACES): 10 - Related Data Allergies Allergy/AdvReac Type Severity Reaction Status Date / Time No Known Allergies Allergy Verified 08/23/17 13:40 Home Meds: Home Meds Ciprofloxacin [IJD: Ciprofloxacin HCl] 500 mg PO DAILY 08/23/17 [History] Fluticasone Furoate [Arnuity Ellipta] 50 mcg NASBOTH BID 08/23/17 [History] Hydrochlorothiazide 12.5 mg PO DAILY 08/23/17 [History] Levothyroxine [Synthroid] 50 mcg PO DAILY 08/23/17 [History] Meclizine [Antivert] 12.5 mg PO TID PRN 08/23/17 [History] Meloxicam 7.5 mg PO DAILY 08/23/17 [History] Metoprolol Succinate [Toprol XL] 25 mg PO BID 08/23/17 [History] Potassium Chloride [Klor-Con] 20 meq PO DAILY 08/23/17 [History] Simvastatin [Zocor] 20 mg PO DAILY 08/23/17 [History] amLODIPine Besylate [Amlodipine Besylate] 5 mg PO DAILY 08/23/17 [History] traMADol [Ultram] 50 mg PO Q6H PRN #15 tab 08/23/17 [Rx] Past Medical History HEENT History: Reports: Cataract, Impaired Vision Cardiovascular History: Reports: High Cholesterol, Hypertension Gastrointestinal History: Reports: GERD Genitourinary History: Reports: Urinary Incontinence 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: Endocrine/Metabolic History: Reports: Hypothyroidism - Past Surgical History HEENT Surgical History: Reports: Cataract Surgery Cardiovascular Surgical History: Reports: None GI Surgical History: Reports: None Female Surgical History: Reports: None, Other (See Below) Endocrine Surgical History: Reports: None Social & Family History - Family History Family Medical History: Noncontributory - Tobacco Use Smoking Status *Q: Never Smoker Years of Tobacco use: 39 Packs/Tins Daily: 0.5 Used Tobacco, but Quit: No Month Tobacco Last Used: 1991 Second Hand Smoke Exposure: No - Caffeine Use Caffeine Use: Reports: None - Alcohol Use Days Per Week of Alcohol Use: 0 - Recreational Drug Use Recreational Drug Use: No - Living Situation & Occupation Living situation: Reports: , Alone Occupation: Employed ED ROS GENERAL - Review of Systems Review Of Systems: See Below Constitutional: Reports: No Symptoms Respiratory: Reports: Pleuritic Chest Pain. Denies: Shortness of Breath, Cough , Sputum Cardiovascular: Reports: Chest Pain GI/Abdominal: Reports: No Symptoms Musculoskeletal: Reports: Back Pain (Left lower back) Skin: Reports: No Symptoms ED EXAM, GENERAL - Physical Exam Exam: See Below Exam Limited By: No Limitations General Appearance: Alert, WD/WN, No Apparent Distress Ears: Hearing Grossly Normal Nose: Normal Inspection Throat/Mouth: Normal Voice, No Airway Compromise Neck: Normal Inspection, Supple, Non-Tender, Full Range of Motion Respiratory/Chest: No Respiratory Distress, Lungs Clear, Normal Breath Sounds, No Accessory Muscle Use, Other (Tenderness noted along the left lateral lower rib cage with palpation. No bony abnormalities, bruising, swelling noted. Pain is also noted along the posterior left-sided rib cage with palpation no bruising swelling, or bony abdomen eyes noted.) Cardiovascular: Normal Peripheral Pulses, Regular Rate, Rhythm, No Murmur Peripheral Pulses: 2+: Radial (L), Radial (R) GI/Abdominal: Normal Bowel Sounds, Soft, Non-Tender, No Organomegaly, No Distention Back Exam: Normal Inspection, CVA Tenderness (L). No: CVA Tenderness (R), Paraspinal Tenderness, Vertebral Tenderness Extremities: Normal Inspection, Normal Range of Motion, Non-Tender, No Pedal Edema, Normal Capillary Refill Neurological: Alert, Oriented, CN II-XII Intact, Normal Cognition, Normal Gait, No Motor/Sensory Deficits Psychiatric: Normal Affect, Normal Mood Skin Exam: Warm, Dry, Intact, Normal Color Course - Vital Signs Last Recorded V/S: Last Vital Signs Temp 97.0 F 08/23/17 13:40 Pulse 70 08/23/17 13:40 Resp 18 08/23/17 13:40 BP 136/77 08/23/17 13:40 Pulse Ox - Orders/Labs/Meds Meds: Medications Discontinued Medications Generic Name Dose Route Start Last Admin Trade Name Saqib PRN Reason Stop Dose Admin Tramadol HCl 50 mg 08/23/17 14:50 08/23/17 15:42 Ultram PO 08/23/17 14:51 50 mg ONETIME ONE Administration - Re-Assessments/Exams Free Text/Narrative Re-Assessment/Exam: Will go ahead and obtain left-sided rib x-rays with chest and also UA. She is quite tender along the posterior aspect of the left rib cage with palpation. No bony abnormalities noted. 08/23/17 14:30 x-ray of the chest and rib cage is did not reveal any acute abnormalities noted. Final interpretation is pending. Reassessment, patient continues have pain unable to lay flat. Ordered Tylenol 50 mg by mouth and also chest CT without contrast. 08/23/17 15:15 Final interpretation Chest x-ray revealed density within the left base most likely due to scar although difficult to completely exclude a mass. Noncontrast CT should be considered of the chest to further evaluate. No discrete left-sided rib fractures seen. Nondisplaced fracture could easily be missed. 08/23/17 15:36 CT chest impression: 3 small subpleural nodules within the right lung base most likely incidental. Scarring in adjacent pleural thickening noted within the lingula which is felt to correlate to the density on chest x-ray. No rib fractures identified with other incidental findings. 08/23/17 15:39 Patient unable to provide a urine sample. I have offered multiple pain therapies including topical Biofreeze, tramadol, and/or lidocaine patch. Patient agrees with tramadol and will utilize Aspercreme as needed. Will discharge patient home with instructions as documented. Departure - Departure Time of Disposition: 15:44 Disposition: Home, Self-Care 01 Condition: Good Clinical Impression: Rib pain on left side - Discharge Information Prescriptions: traMADol [Ultram] 50 mg PO Q6H PRN #15 tab PRN Reason: Pain (Severe 7-10) Instructions: Rib Contusion Referrals: Rodger Molina MD [Primary Care Provider] - Forms: ED Department Discharge, ED Return to Work/School Form Additional Instructions: As discussed suspect rib contusion/back strain. Treatment will include: ice and heat to the affected area in alternating fashion as needed throughout the day. Tylenol 650mg every 4 to 6 hrs with tramadol 50mg's as needed for pain. No driving while taking the tramadol. May use Biofreeze or Aspercreme to the affected area. Beaware the tramadol can cause increased drowsiness thus increasing her risk for falling. Please minimize her use of tramadol 2 as needed. Follow-up with PCP attending of this week or first part of next week if symptoms persist. Return to the ED if you develop any new or worsening symptoms.
[2017-08-23] MEDS ORDERED: traMADol 50 MG Tab PO ONE (14:50)
--- NOTE | 2017-08-23 14:57 | CR ---
Chest and left ribs: Frontal view of the chest was obtained as well as four views of the left ribs. Comparison: Prior chest x-ray of 10/16/16. Parenchymal density is seen within the left base. Lungs otherwise are clear. Heart size is normal. Tortuous thoracic aorta is seen. Lungs are hyperinflated compatible with emphysematous change. Bony structures are osteopenic. No discrete rib fracture is seen. Impression: 1. Parenchymal density within the left base most likely due to scar although difficult to completely exclude a mass. Noncontrast CT could be considered of the chest to further evaluate. 2. No discrete left-sided rib fracture is seen. Nondisplaced fracture could easily be missed. Diagnostic code #9
--- NOTE | 2017-08-23 15:23 | CT ---
CT chest Technique: Multiple axial sections were obtained through the chest. Intravenous contrast was not utilized. Comparison: Prior chest x-ray performed earlier on the same day (1:57 PM) Findings: Atherosclerotic calcification is noted within the aorta. No mediastinal or hilar mass or adenopathy is seen. Minimal coronary artery calcification is seen. Small portion of the visualized upper abdominal structures appear within normal limits. Incidental note of small hiatal hernia. 3 small subpleural nodules are noted within the right lung base. Parenchymal scarring is seen with adjacent pleural thickening within the lingula. This lingular density likely correlates to the density on chest x-ray. Lungs otherwise are clear. Degenerative spurring is seen within the spine. No rib fracture is identified. Impression: 1. 3 small subpleural nodules within the right lung base most likely incidental. 2. Scarring and adjacent pleural thickening noted within the lingula which is felt to correlate to the density on chest x-ray. 3. No rib fracture is identified with other incidental findings. Diagnostic code #2
== END 2017-08-23 16:05 | disposition home or self-care (01) ==
LOC: JD.ED 13:32
DX: R07.81 Pleurodynia (principal); E78.00 Pure hypercholesterolemia, unspecified; I10 Essential (primary) hypertension; E03.9 Hypothyroidism, unspecified; Z79.899 Other long term (current) drug therapy
CPT/HCPCS: 71101; 71250; 99284; A9270

== ENCOUNTER 2017-08-30 05:19 | Observation (INO) | payer OTHER, MEDICARE ==
[2017-08-30] MEDS ORDERED: HYDROmorphone 1 MG/ML Syringe IVPUSH ONE (05:35)
[2017-08-30] MEDS ORDERED: Metoclopramide 10 MG/2 ML SDV IVPUSH ONE (05:35)
--- NOTE | 2017-08-30 05:40 | EDM.PDOC ---
<Heladio Friedman - Last Filed: 08/30/17 10:22> ED HPI GENERAL MEDICAL PROBLEM - General Chief Complaint: Lower Extremity Injury/Pain Stated Complaint: [facility] Time Seen by Provider: 08/30/17 05:25 - Related Data Allergies Allergy/AdvReac Type Severity Reaction Status Date / Time No Known Allergies Allergy Verified 08/30/17 05:23 Home Meds: Home Meds Fluticasone Furoate [Arnuity Ellipta] 50 mcg NASBOTH BID 08/23/17 [History] Levothyroxine [Synthroid] 50 mcg PO DAILY 08/23/17 [History] Meclizine [Antivert] 12.5 mg PO TID PRN 08/23/17 [History] Metoprolol Succinate [Toprol XL] 25 mg PO BID 08/23/17 [History] Potassium Chloride [Klor-Con] 20 meq PO DAILY 08/23/17 [History] Simvastatin [Zocor] 20 mg PO DAILY 08/23/17 [History] amLODIPine Besylate [Amlodipine Besylate] 5 mg PO DAILY 08/23/17 [History] traMADol [Ultram] 50 mg PO Q6H PRN #15 tab 08/23/17 [Rx] Acetaminophen/HYDROcodone [[place] 325-5 MG] 1 tab PO Q4H PRN #30 tablet 08/31/17 [Rx] Celecoxib [CeleBREX] 100 mg PO BID #60 cap 08/31/17 [Rx] Docusate Sodium [Colace] 100 mg PO BID #60 cap 08/31/17 [Rx] Course - Vital Signs Last Recorded V/S: Last Vital Signs Temp 36.5 C 08/31/17 08:46 Pulse 76 08/31/17 08:46 Resp 16 08/31/17 08:46 BP 127/66 08/31/17 08:46 Pulse Ox 91 L 08/31/17 08:46 - Orders/Labs/Meds Labs: Laboratory Tests 08/30/17 08/30/17 08/30/17 Range/Units 05:25 05:25 05:25 WBC 6.43 (3.98-10.04) K/mm3 RBC 4.56 (3.98-5.22) M/mm3 Hgb 12.5 (11.2-15.7) gm/L Hct 38.0 (34.1-44.9) % MCV 83.3 (79.4-94.8) fl MCH 27.4 (25.6-32.2) pg MCHC 32.9 (32.2-35.5) g/dl RDW Std Deviation 39.5 (36.4-46.3) fL Plt Count 201 (182-369) K/mm3 MPV 12.3 (9.4-12.3) fl Neutrophils % (Manual) 63 H (40-60) % Band Neutrophils % 0 (0-10) % Lymphocytes % (Manual) 28 (20-40) % Atypical Lymphs % 0 % Monocytes % (Manual) 6 (2-10) % Eosinophils % (Manual) 2 (0.7-5.8) % Basophils % (Manual) 1 (0.1-1.2) Platelet Estimate Adequate RBC Morph Comment Normal ESR 24 H (0-20) mm/hr Sodium 141 (136-145) mEq/L Potassium 3.8 (3.5-5.1) mEq/L Chloride 105 (98-107) mEq/L Carbon Dioxide 23 (21-32) mEq/L Anion Gap 16.8 H (5-15) BUN 19 H (7-18) mg/dL Creatinine 1.3 H (0.55-1.02) mg/dL Est Cr Clr Drug Dosing 31.33 mL/min Estimated GFR (MDRD) 39 (>60) mL/min BUN/Creatinine Ratio 14.6 (14-18) Glucose 137 H (83-115) mg/dL Calcium 9.3 (8.5-10.1) mg/dL Total Bilirubin 0.5 (0.2-1.0) mg/dL AST 17 (15-37) U/L ALT 25 (14-59) U/L Alkaline Phosphatase 75 (46-116) U/L Total Protein 7.4 (6.4-8.2) g/dl Albumin 3.8 (3.4-5.0) g/dl Globulin 3.6 gm/dL Albumin/Globulin Ratio 1.1 (1-2) Meds: Medications Discontinued Medications Generic Name Dose Route Start Last Admin Trade Name Freq PRN Reason Stop Dose Admin Hydrocodone Bitart/Acetaminophen 1 tab 08/30/17 12:48 08/30/17 21:26 [place] 325-5 Mg PO 1 tab Q4H PRN Administration Pain Amlodipine Besylate 5 mg 08/31/17 09:00 Norvasc PO DAILY [facility] Celecoxib 100 mg 08/31/17 09:15 08/31/17 10:10 Celebrex PO 100 mg BID [facility] Administration Docusate Sodium 100 mg 08/31/17 09:00 08/31/17 08:43 Colace PO 100 mg BID [facility] Administration Enoxaparin Sodium 40 mg 08/31/17 09:00 08/31/17 08:43 Lovenox SUBCUT 40 mg DAILY [facility] Administration Famotidine 20 mg 08/31/17 09:00 Pepcid PO DAILY [facility] Hydralazine HCl 5 mg 08/30/17 23:03 Apresoline IVPUSH Q8H PRN Hypertension Hydromorphone HCl 0.5 mg 08/30/17 05:35 08/30/17 07:00 Dilaudid IVPUSH 08/30/17 05:36 Not Given ONETIME ONE Hydromorphone HCl 0.5 mg 08/30/17 05:44 08/30/17 05:50 Dilaudid IVPUSH 08/30/17 05:45 0.5 mg ONETIME ONE Administration Hydromorphone HCl 1 mg 08/30/17 12:47 Dilaudid IVPUSH Q4H PRN Pain Lactated Ringer's 1,000 mls @ 75 mls/hr 08/30/17 13:00 08/30/17 14:42 Ringers, Lactated IV 08/30/17 21:00 75 mls/hr ASDIRECTED [facility] Administration Ketorolac Tromethamine 30 mg 08/30/17 06:45 08/30/17 06:46 Toradol IVPUSH 30 mg ONETIME [facility] Administration Ketorolac Tromethamine 15 mg 08/30/17 13:00 08/31/17 06:10 Toradol IVPUSH 09/01/17 13:01 15 mg Q6H [facility] Administration Levothyroxine Sodium 50 mcg 08/31/17 09:00 Synthroid PO DAILY [facility] Magnesium Hydroxide 30 ml 08/31/17 06:52 08/31/17 07:47 Milk Of Magnesia PO 08/31/17 06:53 30 ml ONETIME ONE Administration Meclizine HCl 12.5 mg 08/30/17 19:24 Antivert PO TID PRN Dizziness Methylprednisolone Sodium Succinate 125 mg 08/30/17 06:38 08/30/17 06:46 Solu-Medrol IVPUSH 08/30/17 06:39 125 mg ONETIME ONE Administration Methylprednisolone Sodium Succinate 125 mg 08/30/17 14:00 08/31/17 08:43 Solu-Medrol IVPUSH 125 mg Q6H [facility] Administration Metoclopramide HCl 7.5 mg 08/30/17 05:35 08/30/17 05:50 Reglan IVPUSH 08/30/17 05:36 7.5 mg ONETIME ONE Administration Metoprolol Succinate 25 mg 08/30/17 21:00 08/31/17 08:44 Toprol Xl PO 25 mg BID [facility] Administration Non-Formulary Medication 500 mg 08/31/17 09:00 Ciprofloxacin PO DAILY [facility] Non-Formulary Medication 50 mcg 08/30/17 21:00 Fluticasone Furoate [Arnuity Ellipta] NASBOTH BID [facility] Non-Formulary Medication 20 meq 08/31/17 09:00 Potassium Chloride PO DAILY [facility] Ondansetron HCl 4 mg 08/30/17 12:48 Zofran IVPUSH Q8H PRN Nausea/Vomiting Simvastatin 20 mg 08/31/17 09:00 Zocor PO DAILY [facility] - Re-Assessments/Exams Free Text/Narrative Re-Assessment/Exam: 08/30/17 10:22 Attempt was made to ambulate the patient around 09:30, however, the patient did not tolerate it. I discussed with the patient now option of putting her in overnight to allow the steroids to take effect, and she was agreeable. Case then discussed with Dr. Galvan, here in the ED, at 10:15. She is agreeable to place the patient into observation overnight to allow the steroids to take effect. Departure - Departure Time of Disposition: 10:15 Disposition: Refer to Observation Condition: Good Clinical Impression: Sacroiliitis - Discharge Information <Jean Sarkar - Last Filed: 09/01/17 07:17> ED HPI GENERAL MEDICAL PROBLEM - General Source of Information: Reports: Patient History Limitations: Reports: No Limitations - History of Present Illness INITIAL COMMENTS - FREE TEXT/NARRATIVE: 86-year-old female presents the ED per ambulance with severe right buttock and hip pain. Patient states she has pain in her lower back right SI joint distribution in her buttock right groin and radiates posteriorly down the thigh to the knee. Pain does not radiate below the knee. Pain is severe and worsened with any kind of movement. Patient fell about a week ago slipped in the workplace on a wet floor landing buttock first. She was seen through the ED and had x-rays of her ribs and actually a CT of chest performed with no fractures identified. Socially she's been seeing a chiropractor and did see him yesterday and had back neck and SI joints manipulated. Subsequently she has developed severe pain in the right lower back and SI joint. Over the last week since the fall she was able to walk without a gait aid. Pain is so bad she could not find a comfortable position to allow her to sleep. Onset: Sudden Onset Date: 08/29/17 (Pain started last evening. 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 Did land buttock first didn't feel she had been injured severely. She was seen through the ED for evaluation of rib pain. She states initially she did have pain in her left buttock and hip area and now is all on the right side since chiropractic manipulation yesterday.). Denies: Activity, Exercise, Lifting, Sick Contact Associated Symptoms: Reports: Malaise. Denies: Cough, cough w sputum, Diaphoresis, Fever/Chills, Headaches, Loss of Appetite, Nausea/Vomiting, Rash, Seizure, Shortness of Breath Treatments [employer]PER[employer]: Reports: Other (see below) (None.) Right Hip Pain Score (Numeric/FACES): 7 Past Medical History HEENT History: Reports: Cataract, Impaired Vision Cardiovascular History: Reports: High Cholesterol, Hypertension Gastrointestinal History: Reports: GERD Genitourinary History: Reports: Urinary Incontinence [employer] History: Reports: Endocrine/Metabolic History: Reports: Hypothyroidism - Past Surgical History HEENT Surgical History: Reports: Cataract Surgery Cardiovascular Surgical History: Reports: None GI Surgical History: Reports: None Female Surgical History: Reports: None, Other (See Below) Endocrine Surgical History: Reports: None Social & Family History - Family History Family Medical History: Noncontributory - Tobacco Use Smoking Status *Q: Never Smoker Years of Tobacco use: 39 Packs/Tins Daily: 0.5 Used Tobacco, but Quit: No Month Tobacco Last Used: 1991 Second Hand Smoke Exposure: No - Caffeine Use Caffeine Use: Reports: None - Alcohol Use Days Per Week of Alcohol Use: 0 - Recreational Drug Use Recreational Drug Use: No - Living Situation & Occupation Living situation: Reports: , Alone Occupation: Employed Review of Systems - Review of Systems Review Of Systems: See Below Constitutional: Reports: No Symptoms Eyes: Reports: No Symptoms Ears: Reports: No Symptoms Nose: Reports: No Symptoms Mouth/Throat: Reports: No Symptoms Respiratory: Reports: No Symptoms Cardiovascular: Reports: No Symptoms GI/Abdominal: Reports: No Symptoms Genitourinary: Reports: Other (Urinary frequency) Musculoskeletal: Reports: Back Pain, Leg Pain (Posterior leg pain on the right side) Skin: Reports: No Symptoms Neurological: Reports: Difficulty Walking (Starting yesterday after chiropractic manipulation of her lower back and hip.) Psychiatric: Reports: No Symptoms ED EXAM, GENERAL - Physical Exam Exam: See Below Exam Limited By: No Limitations General Appearance: Alert, WD/WN, Moderate Distress Eye Exam: Bilateral Eye: Normal Inspection Respiratory/Chest: No Respiratory Distress, Lungs Clear, Normal Breath Sounds Cardiovascular: Normal Peripheral Pulses, Regular Rate, Rhythm, No Edema, No Gallop, No Murmur, No Rub Back Exam: Normal Inspection, Decreased Range of Motion, Vertebral Tenderness ( Throughout the lumbar spine but no mouth position of the spinous processes appreciated. Lower back has very little flexibility.), Other (Severe pain both anterior and posterior right hip on stressing the right SI joint. Pain localizes very well to the mid and superior aspect of the right sacroiliac joint with excruciating pain on palpation. Skin is normal with no sign of shingles.). No: Full Range of Motion, CVA Tenderness (L), CVA Tenderness (R) Extremities: Normal Inspection, Other (Her range of motion of her hips is pretty good for her age. Specially on the left side. She did have pain on external rotation of the right hip in the SI joint and groin area. No pain on internal rotation of the hip. Was able to lift the leg off the gurney slowly although full flexion at the hip did cause pain in the buttock area.). No: Normal Range of Motion Neurological: Alert, Oriented, CN II-XII Intact, Normal Cognition Psychiatric: Anxious, Other (In pain) Skin Exam: Warm, Dry, Intact, Normal Color, Pallor (Mild pallor) Course - Orders/Labs/Meds Labs: Laboratory Tests 08/30/17 08/30/17 08/30/17 Range/Units 05:25 05:25 05:25 WBC 6.43 (3.98-10.04) K/mm3 RBC 4.56 (3.98-5.22) M/mm3 Hgb 12.5 (11.2-15.7) gm/L Hct 38.0 (34.1-44.9) % MCV 83.3 (79.4-94.8) fl MCH 27.4 (25.6-32.2) pg MCHC 32.9 (32.2-35.5) g/dl RDW Std Deviation 39.5 (36.4-46.3) fL Plt Count 201 (182-369) K/mm3 MPV 12.3 (9.4-12.3) fl Neutrophils % (Manual) 63 H (40-60) % Band Neutrophils % 0 (0-10) % Lymphocytes % (Manual) 28 (20-40) % Atypical Lymphs % 0 % Monocytes % (Manual) 6 (2-10) % Eosinophils % (Manual) 2 (0.7-5.8) % Basophils % (Manual) 1 (0.1-1.2) Platelet Estimate Adequate RBC Morph Comment Normal ESR 24 H (0-20) mm/hr Sodium 141 (136-145) mEq/L Potassium 3.8 (3.5-5.1) mEq/L Chloride 105 (98-107) mEq/L Carbon Dioxide 23 (21-32) mEq/L Anion Gap 16.8 H (5-15) BUN 19 H (7-18) mg/dL Creatinine 1.3 H (0.55-1.02) mg/dL Est Cr Clr Drug Dosing 31.33 mL/min Estimated GFR (MDRD) 39 (>60) mL/min BUN/Creatinine Ratio 14.6 (14-18) Glucose 137 H (83-115) mg/dL Calcium 9.3 (8.5-10.1) mg/dL Total Bilirubin 0.5 (0.2-1.0) mg/dL AST 17 (15-37) U/L ALT 25 (14-59) U/L Alkaline Phosphatase 75 (46-116) U/L Total Protein 7.4 (6.4-8.2) g/dl Albumin 3.8 (3.4-5.0) g/dl Globulin 3.6 gm/dL Albumin/Globulin Ratio 1.1 (1-2) Meds: Medications Discontinued Medications Generic Name Dose Route Start Last Admin Trade Name Freq PRN Reason Stop Dose Admin Hydrocodone Bitart/Acetaminophen 1 tab 08/30/17 12:48 08/30/17 21:26 [place] 325-5 Mg PO 1 tab Q4H PRN Administration Pain Amlodipine Besylate 5 mg 08/31/17 09:00 Norvasc PO DAILY [facility] Celecoxib 100 mg 08/31/17 09:15 08/31/17 10:10 Celebrex PO 100 mg BID [facility] Administration Docusate Sodium 100 mg 08/31/17 09:00 08/31/17 08:43 Colace PO 100 mg BID [facility] Administration Enoxaparin Sodium 40 mg 08/31/17 09:00 08/31/17 08:43 Lovenox SUBCUT 40 mg DAILY [facility] Administration Famotidine 20 mg 08/31/17 09:00 Pepcid PO DAILY [facility] Hydralazine HCl 5 mg 08/30/17 23:03 Apresoline IVPUSH Q8H PRN Hypertension Hydromorphone HCl 0.5 mg 08/30/17 05:35 08/30/17 07:00 Dilaudid IVPUSH 08/30/17 05:36 Not Given ONETIME ONE Hydromorphone HCl 0.5 mg 08/30/17 05:44 08/30/17 05:50 Dilaudid IVPUSH 08/30/17 05:45 0.5 mg ONETIME ONE Administration Hydromorphone HCl 1 mg 08/30/17 12:47 Dilaudid IVPUSH Q4H PRN Pain Lactated Ringer's 1,000 mls @ 75 mls/hr 08/30/17 13:00 08/30/17 14:42 Ringers, Lactated IV 08/30/17 21:00 75 mls/hr ASDIRECTED [facility] Administration Ketorolac Tromethamine 30 mg 08/30/17 06:45 08/30/17 06:46 Toradol IVPUSH 30 mg ONETIME [facility] Administration Ketorolac Tromethamine 15 mg 08/30/17 13:00 08/31/17 06:10 Toradol IVPUSH 09/01/17 13:01 15 mg Q6H [facility] Administration Levothyroxine Sodium 50 mcg 08/31/17 09:00 Synthroid PO DAILY [facility] Magnesium Hydroxide 30 ml 08/31/17 06:52 08/31/17 07:47 Milk Of Magnesia PO 08/31/17 06:53 30 ml ONETIME ONE Administration Meclizine HCl 12.5 mg 08/30/17 19:24 Antivert PO TID PRN Dizziness Methylprednisolone Sodium Succinate 125 mg 08/30/17 06:38 08/30/17 06:46 Solu-Medrol IVPUSH 08/30/17 06:39 125 mg ONETIME ONE Administration Methylprednisolone Sodium Succinate 125 mg 08/30/17 14:00 08/31/17 08:43 Solu-Medrol IVPUSH 125 mg Q6H [facility] Administration Metoclopramide HCl 7.5 mg 08/30/17 05:35 08/30/17 05:50 Reglan IVPUSH 08/30/17 05:36 7.5 mg ONETIME ONE Administration Metoprolol Succinate 25 mg 08/30/17 21:00 08/31/17 08:44 Toprol Xl PO 25 mg BID [facility] Administration Non-Formulary Medication 500 mg 08/31/17 09:00 Ciprofloxacin PO DAILY [facility] Non-Formulary Medication 50 mcg 08/30/17 21:00 Fluticasone Furoate [Arnuity Ellipta] NASBOTH BID [facility] Non-Formulary Medication 20 meq 08/31/17 09:00 Potassium Chloride PO DAILY [facility] Ondansetron HCl 4 mg 08/30/17 12:48 Zofran IVPUSH Q8H PRN Nausea/Vomiting Simvastatin 20 mg 08/31/17 09:00 Zocor PO DAILY [facility] - Radiology Interpretation Free Text/Narrative:: 86-year-old female presents to the ED per ambulance due to severe pain in her right hip and buttock area. She states she fell about a week ago in the workplace when she slipped on a wet floor landing buttock first. She had injured her ribs at the same time and was seen through the ED with chest x-ray and CT chest carried out with no rib fractures or thoracic spine fractures identified. She did have some mild left SI joint buttock pain after that but after chiropractic manipulation yesterday of her back and suspect SI joint she develops severe pain in the right buttock hip rating down the posterior right thigh. Pain is bad enough that she can't walk and she cannot sleep or find a comfortable position. Examination reveals point tenderness throughout the mid and superior aspect of the right SI joint and stressing the joint caused severe pain. Therefore it's unlikely that she has an occult fracture but x-rays of her pelvis and SI joints will be done and I'll see both hands of her hip as well. Initial treatment will be Dilaudid 0.5 mg IV with Reglan 7.5 mg IV. Routine labs will be collected so that I can assess her renal function and whether or not she could tolerate a short course of NSAIDs and/or corticosteroids. - Re-Assessments/Exams Free Text/Narrative Re-Assessment/Exam: 08/30/17 06:35 x-ray of the pelvis reveals degenerative changes in both hips with sclerosis superior and inferior aspects of the acetabulum bilaterally. No fractures are evident. 08/30/17 06:36 Labs reveal a normal white count at 6.43. Differential is 63% neutrophils and no bands. Hemoglobin is 12.5.. Hematocrit is 38. Platelets are normal at 201,000. Chemistry shows a sodium of 141 and a potassium of 3.8. Toward 105 bicarbonate 23. Anion gap is mildly elevated at 16.8. Urine is elevated at 19 creatinine is 1.3. GFR is only 39 i.e. stage III chronic kidney disease. Glucose is 137. Calcium is 9.3. Liver function normal. Patient really doesn't have any contraindications to using Toradol 30 mg IV and I also will give her an initial dose of Solu-Medrol 125 mg IV.
[2017-08-30] MEDS ORDERED: HYDROmorphone 0.5 MG/0.5 ML SYRINGE IVPUSH ONE (05:44)
[2017-08-30] MEDS ORDERED: methylPREDNISolone Sodium Succinate 125 MG/2 ML SDV IVPUSH ONE (06:38)
[2017-08-30] MEDS ORDERED: Ketorolac 30 MG/ML SDV IVPUSH SCH (06:45)
--- NOTE | 2017-08-30 07:13 | CR ---
Pelvis: AP view of the pelvis was obtained. Comparison: No prior pelvis exam. Mild joint space narrowing is seen within the right hip. Joint space within the left hip is preserved. Sacroiliac joints are within normal limits. Osteopenia is noted. No discrete fracture or other bony abnormality is appreciated. Sclerotic lesion is identified within the right iliac wing which has the appearance of a bone island. Impression: 1. Incidental findings. Nothing acute is appreciated on AP pelvis study. Diagnostic code #2
[2017-08-30] MEDS ORDERED: HYDROmorphone 0.5 MG/0.5 ML SYRINGE IVPUSH PRN (12:47)
[2017-08-30] MEDS ORDERED: Ondansetron 4 MG/2 ML SDV IVPUSH PRN (12:48)
[2017-08-30] MEDS ORDERED: Lactated Ringers 1,000 ML IV SCH (13:00)
[2017-08-30] MEDS: Ketorolac 15 MG/ML SDV IVPUSH SCH ×2 (14:42→18:43)
[2017-08-30] MEDS: methylPREDNISolone Sodium Succinate 125 MG/2 ML SDV IVPUSH SCH ×2 (14:43→21:27)
[2017-08-30] MEDS: Acetaminophen/HYDROcodone 325-5 MG Tab PO PRN ×2 (16:59→21:26)
--- NOTE | 2017-08-30 18:09 | PCM.HP ---
H&P History of Present Illness - General Date of Service: 08/30/17 Admit Problem/Dx: Admission Diagnosis/Problem Admission Diagnosis/Problem Low back pain Source of Information: Patient, Provider History Limitations: Reports: No Limitations - History of Present Illness Initial Comments - Free Text/Narative: 86 year old female with history of a recent fall presents with sever buttock pain. She has had several radiographic images, there are no fractures. She had been doing well since her fall one week pripr to admission. However she went to a chiropracter and is in severe pain at this time. He was seen one day [facility]. The manipulation performed involved the SI joints as well as lower back. The patient continued to have pain with limited mobility. She will be admitted to obs with telemetry for pain management. Onset of Symptoms: Reports: Sudden Symptom Onset Date: 08/23/17 Duration of Symptoms: Reports: Day(s):, Getting Worse Location: Reports: Back, Pelvis, Lower Extremity, Left, Lower Extremity, Right Severity: Moderate Improves with: Reports: Medication Worsens with: Reports: Movement Associated Symptoms: Reports: Malaise, Weakness Right Hip Pain Score (Numeric/FACES): 6 - Related Data Allergies/Adverse Reactions: Allergies Allergy/AdvReac Type Severity Reaction Status Date / Time No Known Allergies Allergy Verified 08/30/17 05:23 Home Medications: Home Meds Fluticasone Furoate [Arnuity Ellipta] 50 mcg NASBOTH BID 08/23/17 [History] Levothyroxine [Synthroid] 50 mcg PO DAILY 08/23/17 [History] Meclizine [Antivert] 12.5 mg PO TID PRN 08/23/17 [History] Meloxicam 7.5 mg PO DAILY 08/23/17 [History] Metoprolol Succinate [Toprol XL] 25 mg PO BID 08/23/17 [History] Potassium Chloride [Klor-Con] 20 meq PO DAILY 08/23/17 [History] Simvastatin [Zocor] 20 mg PO DAILY 08/23/17 [History] amLODIPine Besylate [Amlodipine Besylate] 5 mg PO DAILY 08/23/17 [History] traMADol [Ultram] 50 mg PO Q6H PRN #15 tab 08/23/17 [Rx] Past Medical History HEENT History: Reports: Cataract, Impaired Vision Cardiovascular History: Reports: High Cholesterol, Hypertension Gastrointestinal History: Reports: GERD Genitourinary History: Reports: Urinary Incontinence 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: , Prolapsed Uterus Endocrine/Metabolic History: Reports: Hypothyroidism - Infectious Disease History Infectious Disease History: Reports: Chicken Pox, Measles, Mumps - Past Surgical History Head Surgeries/Procedures: Reports: None HEENT Surgical History: Reports: Cataract Surgery Cardiovascular Surgical History: Reports: None GI Surgical History: Reports: None Endocrine Surgical History: Reports: None Social & Family History - Family History Family Medical History: Noncontributory - Tobacco Use Smoking Status *Q: Never Smoker Years of Tobacco use: 39 Packs/Tins Daily: 0.5 Used Tobacco, but Quit: No Month Tobacco Last Used: 1991 Second Hand Smoke Exposure: No - Caffeine Use Caffeine Use: Reports: Tea - Alcohol Use Days Per Week of Alcohol Use: 0 Number of Drinks Per Day: 0 Total Drinks Per Week: 0 - Recreational Drug Use Recreational Drug Use: No - Living Situation & Occupation Living situation: Reports: , Alone Occupation: Employed H&P Review of Systems - Review of Systems: Review Of Systems: See Below General: Reports: Malaise, Weakness HEENT: Reports: No Symptoms Pulmonary: Reports: No Symptoms Cardiovascular: Reports: No Symptoms Gastrointestinal: Reports: No Symptoms Genitourinary: Reports: No Symptoms Musculoskeletal: Reports: Back Pain, Leg Pain Skin: Reports: No Symptoms Psychiatric: Reports: No Symptoms Neurological: Reports: No Symptoms Hematologic/Lymphatic: Reports: No Symptoms Immunologic: Reports: No Symptoms Exam - Exam Exam: See Below - Vital Signs Vital Signs: Last Vital Signs Temp 36.3 C 08/30/17 05:20 Pulse 80 08/30/17 05:20 Resp 17 08/30/17 05:20 BP 152/73 H 08/30/17 05:20 Pulse Ox 95 08/30/17 05:20 Weight: 62.097 kg - Exam Quality Assessment: Supplemental Oxygen General: Alert, Oriented HEENT: Mucosa Moist & [place], Pupils Equal, Pupils Reactive, PERRLA Neck: Supple, Trachea Midline Lungs: Clear to Auscultation, Normal Respiratory Effort Cardiovascular: Regular Rate, Regular Rhythm GI/Abdominal Exam: Normal Bowel Sounds, Soft, Non-Tender, No Organomegaly, No Distention (Female) Exam: Deferred Rectal (Female) Exam: Deferred Back Exam: Normal Inspection Extremities: Normal Inspection Skin: Warm Neurological: Cranial Nerves Intact Neuro Extensive - Mental Status: Alert, Oriented x3 Neuro Extensive - Motor, Sensory, Reflexes: CN II-XII Intact Psychiatric: Alert, Normal Affect, Normal Mood - Patient Data Result Diagrams: 08/30/17 05:25 08/30/17 05:25 *Q Meaningful Use (ADM) - VTE *Q VTE Criteria *Q: - Stroke *Q Stroke Criteria *Q: - AMI *Q AMI Criteria *Q: - Problem List (1) Sacroiliitis SNOMED Code(s): 17424790 ICD Code: M46.1 - SACROILIITIS, NOT ELSEWHERE CLASSIFIED Status: Acute Current Visit: Yes (2) Dizziness SNOMED Code(s): 381635180 ICD Code: R42 - DIZZINESS AND GIDDINESS Status: Acute Current Visit: No (3) GERD (gastroesophageal reflux disease) SNOMED Code(s): 090375440 ICD Code: K21.9 - GASTRO-ESOPHAGEAL REFLUX DISEASE WITHOUT ESOPHAGITIS Status: Acute Current Visit: No Problem List Initiated/Reviewed/Updated: Yes Orders Last 24hrs: Active Orders 24 hr Category Date Time Status Activity as Tolerated [RC] .Routine Care 08/30/17 12:43 Active Consult to Case Management [CONS] Routine Cons 08/30/17 12:50 Active Consult to Occupational Therapy [OT Evaluation and Cons 08/30/17 12:44 Active Treatment] [CONS] Routine Consult to Physical Therapy [PT Evaluation and Cons 08/30/17 12:44 Active Treatment] [CONS] Routine Heart Healthy Diet [DIET] Diet 08/30/17 Lunch Active Acetaminophen/HYDROcodone [[place] 325-5 MG] Med 08/30/17 12:48 Active 1 tab PO Q4H PRN Enoxaparin [Lovenox] Med 08/31/17 09:00 Active 40 mg SUBCUT DAILY Famotidine [Pepcid] Med 08/31/17 09:00 Ordered 20 mg PO DAILY Fluticasone Furoate [Arnuity Ellipta] Med 08/30/17 21:00 Ordered 50 mcg NASBOTH BID HYDROmorphone [Dilaudid] Med 08/30/17 12:47 Active 1 mg IVPUSH Q4H PRN Ketorolac [Toradol] Med 08/30/17 13:00 Active 15 mg IVPUSH Q6H Lactated Ringers [Ringers, Lactated] 1,000 ml Med 08/30/17 13:00 Active IV ASDIRECTED Levothyroxine [Synthroid] Med 08/31/17 09:00 Ordered 50 mcg PO DAILY Meclizine Med 08/30/17 12:49 Ordered 12.5 mg PO TID PRN Metoprolol Succinate [Toprol XL] Med 08/30/17 21:00 Ordered 25 mg PO BID Ondansetron [Zofran] Med 08/30/17 12:48 Active 4 mg IVPUSH Q8H PRN Simvastatin [Zocor] Med 08/31/17 09:00 Ordered 20 mg PO DAILY amLODIPine [Norvasc] Med 08/31/17 09:00 Pending 5 mg PO DAILY methylPREDNISolone Sod Succ [Solu-MEDROL] Med 08/30/17 14:00 Active 125 mg IVPUSH Q6H Resuscitation Status Routine Resus Stat 08/30/17 15:00 Ordered Medication Orders Hydrocodone Bitart/Acetaminophen ([place] 325-5 Mg) 1 tab PO Q4H PRN PRN Reason: Pain Last Admin: 08/30/17 16:59 Dose: 1 tab Amlodipine Besylate (Norvasc) 5 mg PO DAILY [facility] Enoxaparin Sodium (Lovenox) 40 mg SUBCUT DAILY [facility] Famotidine (Pepcid) 20 mg PO DAILY [facility] Hydromorphone HCl (Dilaudid) 1 mg IVPUSH Q4H PRN PRN Reason: Pain Lactated Ringer's (Ringers, Lactated) 1,000 mls @ 75 mls/hr IV ASDIRECTED [facility] Stop: 08/30/17 21:00 Last Admin: 08/30/17 14:42 Dose: 75 mls/hr Ketorolac Tromethamine (Toradol) 30 mg IVPUSH ONETIME [facility] Last Admin: 08/30/17 06:46 Dose: 30 mg Ketorolac Tromethamine (Toradol) 15 mg IVPUSH Q6H [facility] Stop: 09/01/17 13:01 Last Admin: 08/30/17 14:42 Dose: 15 mg Levothyroxine Sodium (Synthroid) 50 mcg PO DAILY [facility] Methylprednisolone Sodium Succinate (Solu-Medrol) 125 mg IVPUSH Q6H [facility] Last Admin: 08/30/17 14:43 Dose: 125 mg Metoprolol Succinate (Toprol Xl) 25 mg PO BID [facility] Non-Formulary Medication (Fluticasone Furoate [Arnuity Ellipta]) 50 mcg NASBOTH BID [facility] Non-Formulary Medication (Meclizine) 12.5 mg PO TID PRN PRN Reason: Dizziness Ondansetron HCl (Zofran) 4 mg IVPUSH Q8H PRN PRN Reason: Nausea/Vomiting Simvastatin (Zocor) 20 mg PO DAILY [facility] Assessment/Plan Comment:: Impression: Sacrolilitis Back pain s/p fall with modest pain relief Limited mobility, prohibitive pain Chronic HLD HTN Hypothyroidism GERD Urinary Incontinence Plan: IVF IV NSAIDs IV Steroids Home meds Daily labs DVT/GI prophylaxis Consult PT/OT/CM
[2017-08-30] MEDS ORDERED: Meclizine 12.5 MG Tab PO PRN (19:24)
[2017-08-30] MEDS ORDERED: FLUTICASONE FUROATE 50 MCG NASBOTH SCH (21:00)
[2017-08-30] MEDS: Metoprolol Succinate 25 MG Tab.ER PO SCH (21:27)
[2017-08-30] MEDS ORDERED: hydrALAZINE 20 MG/ML SDV IVPUSH PRN (23:03)
[2017-08-31] MEDS: methylPREDNISolone Sodium Succinate 125 MG/2 ML SDV IVPUSH SCH ×2 (02:23→08:43)
[2017-08-31] MEDS: Ketorolac 15 MG/ML SDV IVPUSH SCH ×2 (02:23→06:10)
[2017-08-31] MEDS ORDERED: Magnesium Hydroxide 400 MG/5 ML Susp 30 ML Cup PO ONE (06:52)
[2017-08-31] MEDS: Metoprolol Succinate 25 MG Tab.ER PO SCH (08:44)
[2017-08-31 08:49] VITALS: BP 127/66
[2017-08-31] MEDS ORDERED: Simvastatin 20 MG Tab PO SCH (09:00)
[2017-08-31] MEDS ORDERED: Levothyroxine 50 MCG Tab PO SCH (09:00)
[2017-08-31] MEDS ORDERED: amLODIPine 5 MG Tab PO SCH (09:00)
[2017-08-31] MEDS ORDERED: POTASSIUM CHLORIDE 20 MEQ PO SCH (09:00)
[2017-08-31] MEDS ORDERED: Docusate Sodium 100 MG Cap PO SCH (09:00)
[2017-08-31] MEDS ORDERED: CIPROFLOXACIN 500 MG PO SCH (09:00)
[2017-08-31] MEDS ORDERED: Famotidine 20 MG Tab PO SCH (09:00)
[2017-08-31] MEDS ORDERED: Enoxaparin 40 MG/0.4 ML Syringe SUBCUT SCH (09:00)
--- NOTE | 2017-08-31 09:05 | PCM.DCSUM1 ---
Discharge Summary - Hospital Course Free Text/Narrative:: 86-year-old female presents the ED per ambulance with severe right buttock and hip pain. Patient states she has pain in her lower back right SI joint distribution in her buttock right groin and radiates posteriorly down the thigh to the knee. Pain does not radiate below the knee. Pain is severe and worsened with any kind of movement. Patient fell about a week ago slipped in the workplace on a wet floor landing buttock first. She was seen through the ED and had x-rays of her ribs and actually a CT of chest performed with no fractures identified. Socially she's been seeing a chiropractor and did see him yesterday and had back neck and SI joints manipulated. Subsequently she has developed severe pain in the right lower back and SI joint. Over the last week since the fall she was able to walk without a gait aid. Pain is so bad she could not find a comfortable position to allow her to sleep. - Discharge Data Discharge Date: 08/31/17 (admit date 08/30/17) Discharge Disposition: Home, Self-Care 01 Condition: Good - Discharge Diagnosis/Problem(s) (1) Sacroiliitis SNOMED Code(s): 66382807 ICD Code: M46.1 - SACROILIITIS, NOT ELSEWHERE CLASSIFIED Status: Acute Priority: High Current Visit: Yes - Patient Summary/Data Operative Procedure(s) Performed: None Complications: None Consults: Consultations 08/30/17 12:44 Consult to Occupational Therapy [OT Evaluation and Treatment] [CONS] Routine Consult to Physical Therapy [PT Evaluation and Treatment] [CONS] Routine 08/30/17 12:50 Consult to Case Management [CONS] Routine Labs Pending at D/C: None Recommended Follow-up Testing/Procedures: Patient DC instructions: Outpatient Physical Therapy Ambulate at least 4 times daily Push fluids, avoid constipation with pain medications Follow up with primary care provider within one week of discharge Planned Operative Procedure(s) after DC: None Hospital Course: Impression: Sacrolilitis- acute on chronic Back pain s/p fall with modest pain relief Limited mobility, prohibitive pain Chronic: cont home meds HLD HTN Hypothyroidism GERD Urinary Incontinence Plan: IVF---DC'd IV NSAIDs IV Steroids Home meds Daily labs--stable DVT/GI prophylaxis Consult PT/OT/CM---DC home today; DC meloxicam, start celebrex for NSAID on discharge, [place] PRN. Cont OP PT/OT, Fup with PCP within one week of DC. - Patient Instructions Diet: Usual Diet as Tolerated, Drink 8-10+ Glasses/Day Activity: As Tolerated Showering/Bathing: May Shower Notify Provider of: Fever, Increased Pain, Nausea and/or Vomiting - Discharge Plan Prescriptions/Med Rec: Acetaminophen/HYDROcodone [[place] 325-5 MG] 1 tab PO Q4H PRN #30 tablet PRN Reason: Pain Celecoxib [CeleBREX] 100 mg PO BID #60 cap Docusate Sodium [Colace] 100 mg PO BID #60 cap Home Medications: Home Meds Fluticasone Furoate [Arnuity Ellipta] 50 mcg NASBOTH BID 08/23/17 [History] Levothyroxine [Synthroid] 50 mcg PO DAILY 08/23/17 [History] Meclizine [Antivert] 12.5 mg PO TID PRN 08/23/17 [History] Metoprolol Succinate [Toprol XL] 25 mg PO BID 08/23/17 [History] Potassium Chloride [Klor-Con] 20 meq PO DAILY 08/23/17 [History] Simvastatin [Zocor] 20 mg PO DAILY 08/23/17 [History] amLODIPine Besylate [Amlodipine Besylate] 5 mg PO DAILY 08/23/17 [History] traMADol [Ultram] 50 mg PO Q6H PRN #15 tab 08/23/17 [Rx] Acetaminophen/HYDROcodone [[place] 325-5 MG] 1 tab PO Q4H PRN #30 tablet 08/31/17 [Rx] Celecoxib [CeleBREX] 100 mg PO BID #60 cap 08/31/17 [Rx] Docusate Sodium [Colace] 100 mg PO BID #60 cap 08/31/17 [Rx] Patient Handouts: Back Exercises, [id number], Back Pain, Adult, [id number] Referrals: PCP,None [Primary Care Provider] - - Discharge Summary/Plan Comment DC Time >30 min.: Yes (40 min) - General Info Date of Service: 08/31/17 Admission Dx/Problem (Free Text: Admission Diagnosis/Problem Admission Diagnosis/Problem Low back pain Pain is improved this morning to low back. Has been up and ambulatory with PT this morning. Plans to DC home today. Functional Status: Reports: Pain Controlled, Tolerating Diet, Ambulating, Urinating. Denies: New Symptoms - Review of Systems General: Reports: Weakness (improved) HEENT: Reports: No Symptoms Pulmonary: Reports: No Symptoms Cardiovascular: Reports: No Symptoms Gastrointestinal: Reports: No Symptoms Genitourinary: Reports: No Symptoms Musculoskeletal: Reports: Back Pain, Leg Pain Skin: Reports: No Symptoms Neurological: Reports: No Symptoms Psychiatric: Reports: No Symptoms - Patient Data Vitals - Most Recent: Last Vital Signs Temp 97.7 F 08/31/17 02:21 Pulse 76 08/31/17 08:44 Resp 19 08/31/17 02:21 BP 127/66 08/31/17 08:44 Pulse Ox 95 08/31/17 02:21 Weight - Most Recent: 139 lb 3.2 oz I&O - Last 24 hours: Intake & Output 08/30/17 08/31/17 08/31/17 22:59 06:59 14:59 Intake Total 520 300 Output Total 700 Balance -180 300 Lab Results - Last 24 hrs: Laboratory Results - last 24 hr 08/31/17 08/31/17 Range/Units 04:52 04:52 WBC 8.42 (3.98-10.04) K/mm3 RBC 4.35 (3.98-5.22) M/mm3 Hgb 12.0 (11.2-15.7) gm/L Hct 36.1 (34.1-44.9) % MCV 83.0 (79.4-94.8) fl MCH 27.6 (25.6-32.2) pg MCHC 33.2 (32.2-35.5) g/dl RDW Std Deviation 39.4 (36.4-46.3) fL Plt Count 183 (182-369) K/mm3 MPV 12.8 H (9.4-12.3) fl Neut % (Auto) 85.8 H (34.0-71.1) % Lymph % (Auto) 6.9 L (19.3-51.7) % [place] % (Auto) 1.7 L (4.7-12.5) % Eos % (Auto) 5.2 (0.7-5.8) Baso % (Auto) 0.0 L (0.1-1.2) % Neut # (Auto) 7.23 H (1.56-6.13) K/mm3 Lymph # (Auto) 0.58 L (1.18-3.74) K/mm3 [place] # (Auto) 0.14 L (0.24-0.36) K/mm3 Eos # (Auto) 0.44 H (0.04-0.36) K/mm3 Baso # (Auto) 0.00 L (0.01-0.08) K/mm3 Manual Slide Review Abnormal smear Sodium 136 (136-145) mEq/L Potassium 4.6 (3.5-5.1) mEq/L Chloride 101 (98-107) mEq/L Carbon Dioxide 21 (21-32) mEq/L Anion Gap 18.6 H (5-15) BUN 26 H (7-18) mg/dL Creatinine 1.3 H (0.55-1.02) mg/dL Est Cr Clr Drug Dosing 31.33 mL/min Estimated GFR (MDRD) 39 (>60) mL/min BUN/Creatinine Ratio 20.0 H (14-18) Glucose 158 H (83-115) mg/dL Calcium 9.2 (8.5-10.1) mg/dL Magnesium 2.0 (1.8-2.4) mg/dl C-Reactive Protein < 0.2 (<1.0) mg/dL Med Orders - Current: Current Medications Hydrocodone Bitart/Acetaminophen ([place] 325-5 Mg) 1 tab PO Q4H PRN PRN Reason: Pain Last Admin: 08/30/17 21:26 Dose: 1 tab Amlodipine Besylate (Norvasc) 5 mg PO DAILY [facility] Celecoxib (Celebrex) 100 mg PO BID [facility] Docusate Sodium (Colace) 100 mg PO BID [facility] Last Admin: 08/31/17 08:43 Dose: 100 mg Enoxaparin Sodium (Lovenox) 40 mg SUBCUT DAILY [facility] Last Admin: 08/31/17 08:43 Dose: 40 mg Famotidine (Pepcid) 20 mg PO DAILY [facility] Hydralazine HCl (Apresoline) 5 mg IVPUSH Q8H PRN PRN Reason: Hypertension Hydromorphone HCl (Dilaudid) 1 mg IVPUSH Q4H PRN PRN Reason: Pain Levothyroxine Sodium (Synthroid) 50 mcg PO DAILY [facility] Meclizine HCl (Antivert) 12.5 mg PO TID PRN PRN Reason: Dizziness Methylprednisolone Sodium Succinate (Solu-Medrol) 125 mg IVPUSH Q6H [facility] Last Admin: 08/31/17 08:43 Dose: 125 mg Metoprolol Succinate (Toprol Xl) 25 mg PO BID [facility] Last Admin: 08/31/17 08:44 Dose: 25 mg Non-Formulary Medication (Fluticasone Furoate [Arnuity Ellipta]) 50 mcg NASBOTH BID [facility] Ondansetron HCl (Zofran) 4 mg IVPUSH Q8H PRN PRN Reason: Nausea/Vomiting Simvastatin (Zocor) 20 mg PO DAILY [facility] Discontinued Medications Hydromorphone HCl (Dilaudid) 0.5 mg IVPUSH ONETIME ONE Stop: 08/30/17 05:36 Last Admin: 08/30/17 07:00 Dose: Not Given Hydromorphone HCl (Dilaudid) 0.5 mg IVPUSH ONETIME ONE Stop: 08/30/17 05:45 Last Admin: 08/30/17 05:50 Dose: 0.5 mg Lactated Ringer's (Ringers, Lactated) 1,000 mls @ 75 mls/hr IV ASDIRECTED [facility] Stop: 08/30/17 21:00 Last Admin: 08/30/17 14:42 Dose: 75 mls/hr Ketorolac Tromethamine (Toradol) 30 mg IVPUSH ONETIME [facility] Last Admin: 08/30/17 06:46 Dose: 30 mg Ketorolac Tromethamine (Toradol) 15 mg IVPUSH Q6H [facility] Stop: 09/01/17 13:01 Last Admin: 08/31/17 06:10 Dose: 15 mg Magnesium Hydroxide (Milk Of Magnesia) 30 ml PO ONETIME ONE Stop: 08/31/17 06:53 Last Admin: 08/31/17 07:47 Dose: 30 ml Methylprednisolone Sodium Succinate (Solu-Medrol) 125 mg IVPUSH ONETIME ONE Stop: 08/30/17 06:39 Last Admin: 08/30/17 06:46 Dose: 125 mg Metoclopramide HCl (Reglan) 7.5 mg IVPUSH ONETIME ONE Stop: 08/30/17 05:36 Last Admin: 08/30/17 05:50 Dose: 7.5 mg Non-Formulary Medication (Ciprofloxacin) 500 mg PO DAILY [facility] Non-Formulary Medication (Potassium Chloride) 20 meq PO DAILY [facility] - Exam Quality Assessment: Reports: DVT Prophylaxis General: Reports: Alert, Oriented, Cooperative, No Acute Distress HEENT: Reports: Pupils Equal, EOMI, Mucous Membr. Moist/[place] Neck: Reports: Supple Lungs: Reports: Clear to Auscultation, Normal Respiratory Effort, Decreased Breath Sounds (bases) Cardiovascular: Reports: Regular Rate, Regular Rhythm GI/Abdominal Exam: Normal Bowel Sounds, Soft, Non-Tender (Female) Exam: Deferred Rectal (Female) Exam: Deferred Extremities: No Pedal Edema, Normal Capillary Refill Neurological: Reports: No New Focal Deficit Psy/Mental Status: Reports: Alert, Normal Affect, Normal Mood *Q Meaningful Use (DIS) - VTE *Q VTE Criteria *Q: - Stroke *Q Stroke Criteria *Q: - AMI *Q AMI Criteria *Q:
[2017-08-31] MEDS ORDERED: Celecoxib 100 MG Cap PO SCH (09:15)
== END 2017-08-31 13:35 | disposition home or self-care (01) ==
LOC: JD.ED 05:19 → UNDOADMOB 11:19 → JD.MS 11:19
PROVIDERS: ADMIT Internal Medicine Cardiovascular Disease; ATTEND Internal Medicine Cardiovascular Disease
DX: M46.1 Sacroiliitis, not elsewhere classified (principal); E78.5 Hyperlipidemia, unspecified; I10 Essential (primary) hypertension; E03.9 Hypothyroidism, unspecified; K21.9 Gastro-esophageal reflux disease without esophagitis; R32 Unspecified urinary incontinence; R42 Dizziness and giddiness; Z91.81 History of falling; Z79.51 Long term (current) use of inhaled steroids; Z79.899 Other long term (current) drug therapy
CPT/HCPCS: 36415; 72170; 80048; 80053; 83735; 85025; 85652; 86140; 96374; 96375; 97110; 97116; 97162; 97165; 97530; 99285; A9270; J1170; J1650; J1885; J2765; J2930; J7120

== ENCOUNTER 2021-11-30 11:13 | Emergency (ER) | payer OTHER, MEDICARE ==
[2021-11-30 11:30] VITALS: BP 137/73; PULSE 70
[2021-11-30] MEDS ORDERED: Prochlorperazine 10 MG/2 ML SDV IVPUSH ONE (11:50)
[2021-11-30] MEDS ORDERED: diphenhydrAMINE 50 MG/ML SDV IVPUSH ONE (11:50)
[2021-11-30] MEDS ORDERED: Lactated Ringers 500 ML IV ONE (11:50)
== END 2021-11-30 15:45 | disposition home or self-care (01) ==
LOC: JD.ED 11:13
DX: H93.13 Tinnitus, bilateral (principal); R51.9 Headache, unspecified; E78.00 Pure hypercholesterolemia, unspecified; I10 Essential (primary) hypertension; E03.9 Hypothyroidism, unspecified; Z79.899 Other long term (current) drug therapy
CPT/HCPCS: 36415; 70450; 80053; 85025; 96374; 96375; 99284; J0780; J1200; J7120